=== PATIENT | male | born 1940 | race Caucasian/White ===

== ENCOUNTER 2020-05-20 14:58 | Outpatient (CLI) | payer MEDICARE, SELFPAY ==
--- NOTE | 2020-05-20 15:15 | ECG_ITS ---
Measurements Intervals [place] Rate: 58 P: 2 CA: 214 QRS: 4 QRSD: 104 T: 47 QT: 399 QTc: 394 Interpretive Statements SINUS BRADYCARDIA WITH FIRST DEGREE AV BLOCK EARLY PRECORDIAL R/S TRANSITION ABNORMAL ECG Electronically Signed On 05-20-2020 15:39:26 CDT by Michael Barajas D.O.
== END 2020-05-20 14:59 | disposition home or self-care (01) ==
LOC: CHSCARD 15:00
PROVIDERS: PCP Family Medicine; Visit Provider Internal Medicine Cardiovascular Disease
DX: I25.10 Atherosclerotic heart disease of native coronary artery without angina pectoris (principal)
CPT/HCPCS: 93005

== ENCOUNTER 2020-05-27 08:31 | Outpatient (CLI) | payer MEDICARE, SELFPAY ==
[2020-05-27 12:47] LABS: Anion Gap 14.2 mmol/L (7-16); Blood Urea Nitrogen 19 mg/dL (7-18); Calcium 9.2 mg/dL (8.5-10.1); Carbon Dioxide 26 mmol/L (21-32); Chloride 103 mmol/L (98-108); Estimated Glomerular Filt Rate 58; Glucose 101 mg/dL (70-99); Osmolality Calculated 290 mOsm/kg (285-295); Potassium 4.2 mmol/L (3.5-5.1); Sodium 139 mmol/L (136-145)
== END 2020-05-27 08:32 | disposition home or self-care (01) ==
PROVIDERS: PCP Family Medicine
DX: I51.9 Heart disease, unspecified (principal); I10 Essential (primary) hypertension; Z13.89 Encounter for screening for other disorder
CPT/HCPCS: 36415; 80048

== ENCOUNTER 2020-12-04 09:10 | Outpatient (CLI) | payer MEDICARE, SELFPAY ==
[2020-12-04 10:13] LABS: Alanine Aminotransferase 7 U/L (16-63); Albumin Level 3.5 g/dL (3.4-5.0); Alkaline Phosphatase 123 U/L (46-116); Anion Gap 7 mmol/L (8-16); Aspartate Amino Transferase 18 U/L (15-37); Bilirubin,Total 0.3 mg/dL (0.00-1.00); Blood Urea Nitrogen 20 mg/dL (7-18); Calcium 8.5 mg/dL (8.5-10.1); Carbon Dioxide 29 mmol/L (21-32); Chloride 104 mmol/L (98-108); Cholesterol 126 mg/dL (0-200); Estimated Glomerular Filt Rate > 60; Glucose 90 mg/dL (70-99); HDL Direct 34 mg/dL (40-60); LDL Cholesterol Calculated 67 mg/dL (<130); Osmolality Calculated 292 mOsm/kg (285-295); Potassium 4.2 mmol/L (3.5-5.1); Sodium 140 mmol/L (136-145); Total Protein 6.8 g/dL (6.4-8.2); Triglycerides 124 mg/dL (0-150)
== END 2020-12-04 09:11 | disposition home or self-care (01) ==
LOC: CHSLAB 09:13
PROVIDERS: PCP Family Medicine; Visit Provider Internal Medicine Cardiovascular Disease
DX: E78.5 Hyperlipidemia, unspecified (principal)
CPT/HCPCS: 36415; 80053; 80061

== ENCOUNTER 2021-02-11 17:20 | Outpatient (CLI) | payer MEDICARE, SELFPAY | END 2021-02-11 17:21 | disposition home or self-care (01) | LOC: CHSLAB 17:23 | PROVIDERS: PCP Family Medicine; Visit Provider Specialist | DX: C44.212 Basal cell carcinoma of skin of right ear and external auricular canal (principal) | CPT/HCPCS: 88305 ==

== ENCOUNTER 2021-06-04 10:05 | Outpatient (CLI) | payer MEDICARE, SELFPAY ==
--- NOTE | ~2021-06-04 | US_ITS ---
EXAMINATION: US arterial ankle brachial ind DATE: 06/04/2021 10:36 INDICATION: Bilateral leg weakness. 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 TECHNIQUE: Segmental pressures and plethysmographic and Doppler waveforms of the brachial and lower e xtremity arteries were obtained. COMPARISON: None. FINDINGS: Right and left brachial artery pressures of 129 mm Hg and 142 mm Hg, respectively, are concordant (no rmal difference <= 30 mmHg). The right ankle-brachial index (LIZ) is 1.03 (normal >= 0.9-1.0). The right great toe-brachial index (TBI) is 0.48 (normal >= 0.65). Arterial Doppler waveforms are triphasic at the right posterior tibia l and monophasic at the right dorsalis pedis artery, both with brisk systolic upstrokes. The left LIZ is 1.00. The left TBI is 0.51. Arterial Doppler waveforms are biphasic with brisk systol ic upstrokes at both the left posterior tibial and dorsalis pedis arteries. IMPRESSION: 1. Mild arterial occlusive disease to the bilateral lower limbs with mildly decreased bilateral TBIs. Reviewed, dictated and finalized at location A. IMPRESSION: 1. Mild arterial occlusive disease to the bilateral lower limbs with mildly dec reased bilateral TBIs.
== END 2021-06-04 10:06 | disposition home or self-care (01) ==
PROVIDERS: PCP Family Medicine; Visit Provider Internal Medicine Cardiovascular Disease
DX: I25.10 Atherosclerotic heart disease of native coronary artery without angina pectoris (principal); R09.89 Other specified symptoms and signs involving the circulatory and respiratory systems
CPT/HCPCS: 93922

== ENCOUNTER 2021-07-08 09:28 | Outpatient (CLI) | payer MEDICARE, SELFPAY | END 2021-07-08 09:29 | disposition home or self-care (01) | PROVIDERS: PCP Family Medicine; Visit Provider Specialist | DX: C44.42 Squamous cell carcinoma of skin of scalp and neck (principal) | CPT/HCPCS: 88305 ==

== ENCOUNTER 2021-08-26 08:33 | Outpatient (CLI) | payer MEDICARE, SELFPAY ==
--- NOTE | ~2021-08-26 | CT_ITS ---
EXAMINATION: CT abdomen pelvis wo con DATE: 08/26/2021 08:59 INDICATION: Unilateral extrarenal hernia without obstruction TECHNIQUE: Computed tomography (CT) of the abdomen and pelvis was performed without intravenous contr ast. The dose-length product (DLP) was 845.24 mGy-cm. Automated exposure control and iterative recons truction technique were employed. COMPARISON: 07/18/2018 FINDINGS: Minimal dependent atelectasis is present in the lung bases. The heart size is normal. There is a small sliding hiatal hernia. Punctate calcifications in otherwise normal appearing liver and sp grant likely represent healed granulomatous disease. The gallbladder is surgically absent. The pancrea s and adrenal glands are normal. Cysts of the kidneys measure up to 1.4 cm on the right. There is fel[place] cified atherosclerosis of the aorta and many of the other arteries. No pathologically enlarged abdomi nal or pelvic lymph nodes are identified. There is no free intraperitoneal gas or evidence of bowel o bstruction. Colonic diverticulosis is present without evidence of diverticulitis. There is a left ing uinal hernia containing fat and a short segment of the lateral wall of the descending colon. The appe ndix is normal. There is severe lumbar spondylosis. There is a diverticulum in the left lateral wall of the urinary bladder. IMPRESSION: 1. Left inguinal hernia containing fat and a short segment of the lateral wall of the descending colo n. Reviewed, dictated and finalized at location A. IMPRESSION: 1. Left inguinal hernia containing fat and a short segment of the lateral wall of the descending colon.
[2021-08-26 13:19] LABS: Add Urine Microscopic? YES; Appearance Urine Clear (Clear); Bilirubin Urine Negative (Negative); Blood Urine Negative (Negative); Color Urine Yellow (Yellow); Glucose Urine UA Negative (Negative); Ketones Urine Trace (Negative); Leukocyte Esterase Ur Negative LEU/UL (Negative); Nitrate Urine Negative (Negative); Protein Urine Trace (Negative); Specific Grav Ur >= 1.030 (1.010-1.020); Urobilinogen Urine 0.2 mg/dL (0.2-1.0); pH Urine 5.5 (5.0-8.0)
[2021-08-26 13:24] LABS: Bacteria Urine Trace /hpf; RBC Urine None seen /hpf (0-2); WBC Urine None seen /hpf (0-3)
== END 2021-08-26 08:34 | disposition home or self-care (01) ==
PROVIDERS: PCP Family Medicine; Visit Provider Family Medicine
DX: N45.1 Epididymitis (principal); K40.90 Unilateral inguinal hernia, without obstruction or gangrene, not specified as recurrent
CPT/HCPCS: 74176; 81001

== ENCOUNTER 2021-10-01 09:26 | Outpatient (CLI) | payer MEDICARE, SELFPAY ==
--- NOTE | 2021-10-01 09:30 | ECG_ITS ---
Measurements Intervals [place] Rate: 66 P: 52 MO: 210 QRS: -19 QRSD: 117 T: 8 QT: 380 QTc: 401 Interpretive Statements SINUS RHYTHM WITH FIRST DEGREE AV BLOCK INTRAVENTRICULAR CONDUCTION DELAY DELAYED PRECORDIAL R/S TRANSITION MINIMAL Q WAVES- HIGH LATERAL LEADS BASELINE ARTIFACT- I, II, III, AVR, AVL, AVF, V1 ABNORMAL ECG Electronically Signed On 10-01-2021 12:03:01 PRODUCTION CLERK by Michael Barajas D.O.
== END 2021-10-01 09:27 | disposition home or self-care (01) ==
LOC: ANHSURGERY 09:31
PROVIDERS: PCP Family Medicine; Visit Provider Surgery
DX: Z01.818 Encounter for other preprocedural examination (principal); N45.1 Epididymitis; I44.0 Atrioventricular block, first degree; I10 Essential (primary) hypertension
CPT/HCPCS: 36415; 86850; 86900; 86901; 93005

== ENCOUNTER 2021-10-08 01:04 | Day surgery (SDC) | payer MEDICARE, SELFPAY ==
[2021-09-24 15:01] VITALS: BMI 26.4
--- NOTE | 2021-09-24 15:08 | PC.NURSE ---
Report to the Outpatient Waiting Room, entrance under the green pavilion located off [facility], at time _0830 on date _10/08/21 . OR Time: 1030 . - You and your visitor will be asked a series of questions to screen for COVID 19 for your protection. - A mask is required within the hospital. - Only one visitor is allowed at this time. Patient visitors will be guided where to wait when not with patient. Preoperative COVID Testing Requirements: No COVID Test needed if: (proof is required; if not received patient will have Rapid Test prior to entry) - Patient has received COVID Vaccine at least 14 days prior to procedure date or - Patient has positive COVID test result within last 90 days of surgery date. COVID Test needed if above criteria is not met If not COVID vaccinated a COVID test must be conducted within 72 hours of surgery and patient is asked to isolate self from time of testing until procedure. You will go to the [facility] for your COVID testing. The [facility] site is located at the corner of [address] [facility]. You will only be called if COVID results are positive and your surgeon may reschedule your elective surgery date. Patients may have clear liquids (water, carbonated beverages, clear teas, apple juice) until 3 hours prior to surgery with a maximum of 20 ounces. - No food from midnight until time of surgery - Infants may have breast milk until 4 hours before surgery, formula 6 hours prior to surgery. - Children will be allowed to drink immediately following surgery. If applicable, please bring a bottle or sippy cup to assist with drinking. Juice, water, soda, and popsicles are readily available. For infants on formula, please bring formula the day of surgery. Pacifiers are allowed. Take the following medications with a SIP of water the morning of surgery: __NONE Medications to discontinue per physician ____NONE Date to take last dose Please no make-up, nail lao, hairspray, perfume, deodorant, or body powder the day of surgery. No jewelry (including any body piercings) or valuables the day of surgery, leave them at home. Please take a shower or bath the night before, or the morning of, surgery with an antibacterial soap. Wear comfortable, loose fitting clothing. Children are encouraged to wear pajamas. - Jewelry must be removed prior to entering the operating room. Rings and piercings that are not removed may be cut off. - The hospital will not accept responsibility for valuables. - Please leave all valuables, including medications, at home the day of surgery. HIBICLENS SHOWER MORNING OF SURGERY If you are going home after surgery, a licensed lyft driver must drive you home. - NO public transportation without another adult. - We recommend that an adult stay with you for 24 hours following discharge. - We also recommend that you do not drive, make important decision, drink alcoholic beverages, or take any drugs that were not prescribed by your health care provider for at least 24 hours after your discharge time. For Pediatric surgeries, we recommend two adults accompany the child home (only one inside the building at this time). Follow any additional instructions given to you from your surgeon. Telephone instructions given to _PATIENT and asked if any additional questions and then verbalized understanding. Patient advised to call surgeon office or pre surgery nurse liaison [phone] if any additional questions.
[2021-10-08] VITALS (9 sets, daily range): BP systolic 104–142; BP diastolic 49–74; PULSE 57–74; RESP 8–16; TEMP 36.3–36.6; O2SAT 97–100; BMI 26.9
[2021-10-08] MEDS: LACTATED RINGERS 1,000 ML 30 ML IV CONT ×2 (09:20→12:50)
[2021-10-08] MEDS: KETOROLAC 15 MG/ML VIAL (*BKC) IV PUSH (09:30)
[2021-10-08] MEDS: ACETAMINOPHEN 500 MG TABLET 1000 MG PO (09:30)
--- NOTE | 2021-10-08 10:22 | WPDANESEPPF ---
Anes - Initial Pre Proc Eval Procedure: Operation Date: 10/08/21 10:30 Proposed Procedures p Laparoscopic Left Inguinal Hernia Repair With Mesh, DaVinci Assisted - Bob Sampson DO Date/Time: 10/08/21 10:22 Surgeon: Bob Sampson DO Pre Op Diagnosis: Lt Ing Hernia Patient Data Age: 81 Gender: M Height: 1.85 m Weight: 92.7 kg Last Vital Signs Temp 36.6 C 10/08/21 08:45 Pulse 66 10/08/21 08:45 Resp 16 10/08/21 08:45 BP 141/69 H 10/08/21 08:45 Pulse Ox 99 10/08/21 08:45 Allergies Allergy/AdvReac Type Severity Reaction Status Date / Time No Known Allergies Allergy Verified 10/08/21 08:52 Home Medications Medication Instructions Recorded Confirmed Type aspirin 81 mg tablet,delayed 81 mg PO HS 11/24/19 09/24/21 History release finasteride 5 mg tablet 5 mg PO HS tablet 11/27/19 09/24/21 History sildenafil (pulm.hypertension) 20 See Rx Instructions .ROUTE 09/01/21 09/24/21 Rx mg tablet .COMPLEX #30 tablet amlodipine-benazepril 1 cap PO HS 09/24/21 09/24/21 History lovastatin 20 mg PO HS 09/24/21 09/24/21 History metoprolol succinate 25 mg PO HS 09/24/21 09/24/21 History pantoprazole 40 mg PO DAILY 10/08/21 10/08/21 History quetiapine 25 mg PO BID 10/08/21 10/08/21 History Patient hx anesthesia problems: none Family hx anesthesia problems: none Results Review: All pre-operative results and documents have been reviewed as part of the pre-operative evaluation. [facility] Past Medical History Medical History CAD in [place] artery Depression In Remission Dyslipidemia Edema of both legs Erectile dysfunction Essential hypertension Hyperlipidemia (03/03/18) Surgical History Surgical History H/O foot surgery H/O neck surgery History of angioplasty History of cholecystectomy Social History Social History Smoking packs per day: 1 Smoking cigarettes per day: 20.0 Years smoked: 35 Smoking pack-years: 35.00 Smoking status: Former smoker Tobacco type: cigarettes Smoking end date: 11/08/94 Alcohol intake: current Drinks per week: 1 Alcohol use details: rare Living arrangements: alone Spiritual care concerns: No Anes - Eval Final PreProcedure Day of Procedure 10/08/21 10:22 Patient weight: overweight Heart: regular rate and rhythm Lungs: decreased breath sounds Airway: Mallampati scale class II Neurological: alert and oriented Last oral intake: >/= 8 hours ASA classification: III Emergent: no Anesthetic plan: proceed Anesthesia type and monitoring: general ETT and standard monitoring Results Review: All pre-operative results and documents have been reviewed as part of the pre-operative evaluation. Informed Consent: The patient's anesthetic plan and its attendant risks and benefits were discussed with the patient/family/POA. Questions were solicited and answers provided to the satisfaction of the patient/family/POA.
--- NOTE | 2021-10-08 11:03 | WPDHPUPDATE1 ---
History and Physical Update Update Date/Time: 10/08/21 11:03 History and Physical has been reviewed, including an updated exam of the patient. There are NO changes in the patient's condition. Risks, benefits, and alternatives have been discussed and questions answered. Patient agrees to proceed with procedure.
--- NOTE | 2021-10-08 11:04 | PM.IMHP ---
H&P: HPI History of Present Illness Date/Time: 10/08/21 11:04 Chief Complaint: LIH Narrative: 81-year-old man presents for left inguinal hernia repair. He denies any changes since last seen in the office. Review of Systems Review of Systems: All systems reviewed & are unremarkable except as noted in HPI and below Constitutional: Constitutional: Denies chills, Denies fever(s), Denies headache(s) and Denies weight loss Eyes: Eyes: Denies change in vision ENT: Denies dizziness, Denies headache(s), Denies neck mass and Denies throat swelling Cardiovascular: Cardiovascular: Denies chest pain, Denies lightheadedness and Denies dyspnea Respiratory: Respiratory: Denies cough, Denies dyspnea and Denies wheezing Gastrointestinal: Gastrointestinal: Denies abdominal pain, Denies change in bowel habits, Denies nausea and Denies vomiting Genitourinary: Genitourinary: Denies hematuria and Denies dysuria Musculoskeletal: Musculoskeletal: Reports as per HPI Integumentary/Breasts: Skin/Breast: Reports as per HPI Neurologic: Denies dizziness and Denies headache(s) Allergic/Immunologic: Allergic/Immunologic: Denies throat swelling and Denies wheezing PMFSH Past Medical History Medical History CAD in [place] artery Depression In Remission Dyslipidemia Edema of both legs Erectile dysfunction Essential hypertension Hyperlipidemia (03/03/18) Surgical History Surgical History H/O foot surgery H/O neck surgery History of angioplasty History of cholecystectomy Social History Social History Smoking packs per day: 1 Smoking cigarettes per day: 20.0 Years smoked: 35 Smoking pack-years: 35.00 Smoking status: Former smoker Tobacco type: cigarettes Smoking end date: 11/08/94 Alcohol intake: current Drinks per week: 1 Alcohol use details: rare Living arrangements: alone Spiritual care concerns: No Meds Home Medications and Allergies Home Medications Medication Instructions Recorded Confirmed Type aspirin 81 mg tablet,delayed 81 mg PO HS 11/24/19 09/24/21 History release finasteride 5 mg tablet 5 mg PO HS tablet 11/27/19 09/24/21 History sildenafil (pulm.hypertension) 20 See Rx Instructions .ROUTE 09/01/21 09/24/21 Rx mg tablet .COMPLEX #30 tablet amlodipine-benazepril 1 cap PO HS 09/24/21 09/24/21 History lovastatin 20 mg PO HS 09/24/21 09/24/21 History metoprolol succinate 25 mg PO HS 09/24/21 09/24/21 History pantoprazole 40 mg PO DAILY 10/08/21 10/08/21 History quetiapine 25 mg PO BID 10/08/21 10/08/21 History Allergies Allergy/AdvReac Type Severity Reaction Status Date / Time No Known Allergies Allergy Verified 10/08/21 08:52 Vital Signs Vital Signs - 24 hr 10/08/21 08:45 Temperature 36.6 C Pulse Rate 66 Respiratory Rate 16 Blood Pressure 141/69 H Pulse Oximetry 99 Exam Const: General: no acute distress and alert Orientation/consciousness: patient oriented x3 HENMT: Head: normocephalic and atraumatic Ears: hearing grossly normal bilaterally General nose exam: Normal nares present Mouth: Yes Normal oral and palatal mucosa present Eyes: Periorbital: periorbital findings normal Sclera: sclerae normal EOM: EOMs intact bilaterally Neck: Neck: normal visual inspection, no lymphadenopathy and trachea midline Chest: Chest palpation & inspection: normal inspection of the chest Resp: Effort & Inspection: normal respiratory effort Auscultation: clear to auscultation bilaterally Cardio: Jugular venous distension: no JVD Rate: regular rate Rhythm: regular rhythm Heart sounds: S1 normal heart sound present and S2 normal heart sound present Peripheral pulses: Peripheral pulses 2+ throughout GI: Inspection: normal to inspection GI Palp: Yes Soft to palpation, No Tenderness to palpation pre
[2021-10-08] MEDS: ceFAZolin 2 GM/D5W 50 ML 2 GM/50 ML BAG IVPB (11:18)
[2021-10-08] MEDS: BUPIVACAINE HCL 0.5% PF 30 ML VIAL INFILTRATE (11:33)
--- NOTE | 2021-10-08 12:46 | W.PM.PROC2 ---
Procedure Note - Detailed Date of Procedure 10/08/21 Pre-op Diagnosis Left Inguinal Hernia Post-op Diagnosis same (Indirect left inguinal hernia) Procedure Performed Laparoscopic left inguinal hernia repair with mesh, da Rebekah assisted Surgeon Bob Sampson, Anesthesia general and local (0.5% bupivacaine) Indications This is an 81-year-old man who presented with left groin pain for the past 2 months. He had a CT of his abdomen and pelvis performed which showed evidence a left inguinal hernia containing a portion of colon. A reducible hernia was identified on physical exam. Discussions were made with the patient about treatment options, and decision was made to proceed with robotic assisted laparoscopic left inguinal hernia repair with mesh. Findings Laparoscopic left inguinal hernia repair was performed. The patient was found to have an indirect left inguinal hernia. There was no evidence of right inguinal hernia. There was a segment of his sigmoid colon protruding up into the left internal ring. There were some adhesions of the epiploic appendages up to the hernia sac which were taken down with robotic scissors to allow for the hernia sac to be completely reduced. A robotic transabdominal preperitoneal approach was utilized. Once a wide enough preperitoneal pocket was created, I then placed a large left Bard 3DMax mid mesh within the preperitoneal pocket overlying the entire left myopectineal orifice. This was secured in place using 3-0 Vicryl simple interrupted sutures. No specimens were obtained for pathology. Description of Procedure Procedure as well as risks, benefits, and alternatives were discussed with the patient. Written consent was obtained and placed in chart prior to procedure. Patient was brought back to surgical suite. He was placed supine on operating table. Time-out was done to confirm patient and procedure. He was then intubated by Anesthesia Department. His abdomen was prepped and draped in sterile fashion using chlorhexidine prep. 0.5% bupivacaine with epinephrine was infiltrated at each location for incision. A 12 millimeter transverse incision was made just superior to the umbilicus using a 15 blade scalpel. Blunt dissection was carried out down to the linea alba. A vertical incision was made at the linea alba using a 15 blade scalpel. The peritoneum was then bluntly entered. A 12 millimeter trocar was inserted and carbon dioxide insufflation was used to create a pneumoperitoneum. A camera was inserted and the abdominal cavity was inspected. The patient was placed in slight Trendelenburg position. An 8 millimeter incision was made on the right lateral abdomen and an 8 millimeter trocar was inserted under direct visualization. Another 8 millimeter incision was made in the left lateral abdomen and an 8 millimeter trocar was inserted under direct visualization. The robotic arms were brought up to the patient's bedside and secured to the ports. The camera and instruments were inserted. I then moved over to the robotic console and took control of the camera and instruments. After careful inspection of the abdominal cavity, I began scoring the peritoneum along the left lower quadrant using scissors with electrocautery. The preperitoneal plane was entered and this was carefully dissected caudally along the inferior epigastric vessels. Careful dissection with scissors with electrocautery and blunt dissection was used to continue this dissection. I dissected far enough laterally to allow for mesh placement, and also dissected medially to identify the pubic arch and Ariel's ligament. The hernia sac was identified and carefully dissected posteriorly. The cord contents were also identified and the peritoneum was carefully dissected far enough posteriorly to allow for mesh placement. Once an adequate pocket was created, I then placed the mesh within the preperitoneal pocket and carefully unfolded it. The mesh was centered
--- NOTE | 2021-10-08 13:22 | SUR.PHASEI ---
1864 simple mask removed.
--- NOTE | 2021-10-08 13:25 | SUR.PHASEI ---
Top dentures inserted into mouth when O2 removed.
== END 2021-10-08 15:10 | disposition home or self-care (01) ==
PROVIDERS: PCP Family Medicine; Visit Provider Surgery
PROC: 8E0Y4CZ Robotic Assisted Procedure of Lower Extremity, Percutaneous Endoscopic Approach (ICD-10-PCS; CPT 49650; principal; 2021-10-08 10:30)
DX: K40.90 Unilateral inguinal hernia, without obstruction or gangrene, not specified as recurrent (principal); I25.10 Atherosclerotic heart disease of native coronary artery without angina pectoris; E78.5 Hyperlipidemia, unspecified; I10 Essential (primary) hypertension; F32.5 Major depressive disorder, single episode, in full remission; Z87.891 Personal history of nicotine dependence; Z79.82 Long term (current) use of aspirin
CPT/HCPCS: 49650; S2900; A9270; J0690; J1100; J1885; J2405; J2704; J2710; J3010; J7120

== ENCOUNTER 2022-02-09 08:21 | Outpatient (CLI) | payer MEDICARE, SELFPAY ==
[2022-02-09 09:28] LABS: Alanine Aminotransferase 17 U/L (16-63); Albumin Level 3.7 g/dL (3.4-5.0); Alkaline Phosphatase 100 U/L (46-116); Anion Gap 8 mmol/L (8-16); Aspartate Amino Transferase 14 U/L (15-37); Bilirubin,Total 0.5 mg/dL (0.00-1.00); Blood Urea Nitrogen 16 mg/dL (7-18); Calcium 9.5 mg/dL (8.5-10.1); Carbon Dioxide 28 mmol/L (21-32); Chloride 104 mmol/L (98-108); Cholesterol 118 mg/dL (0-200); Estimated Glomerular Filt Rate 60; Glucose 98 mg/dL (70-99); HDL Direct 35 mg/dL (40-60); LDL Cholesterol Calculated 59 mg/dL (<130); Osmolality Calculated 291 mOsm/kg (285-295); Potassium 4.7 mmol/L (3.5-5.1); Sodium 140 mmol/L (136-145); Total Protein 6.9 g/dL (6.4-8.2); Triglycerides 119 mg/dL (0-150)
== END 2022-02-09 08:22 | disposition home or self-care (01) ==
LOC: CHSLAB 08:23
PROVIDERS: PCP Family Medicine; Visit Provider Internal Medicine Cardiovascular Disease
DX: E78.5 Hyperlipidemia, unspecified (principal)
CPT/HCPCS: 36415; 80053; 80061

== ENCOUNTER 2022-07-25 17:10 | Emergency (ER) | payer MEDICARE, SELFPAY ==
--- NOTE | ~2022-07-25 | XR_ITS ---
EXAM: XR elbow LT min 3V DATE: 07/25/2022 17:44 HISTORY: FALL 07/21/22. SWELLING/PAIN LEFT ELBOW. . COMPARISON: None available. FINDINGS: Normal mineralization. No fracture or dislocation. No lytic or blastic lesion. Joint space s are maintained. No erosion or periosteal change. 3.5 x 6.0 cm fluid/soft tissue density mass in the subcutaneous soft tissues lateral to the distal humerus. IMPRESSION: No acute osseous finding in the left elbow. Lateral subcutaneous contusion/hematoma. Reviewed, dictated and finalized at location K. IMPRESSION: No acute osseous finding in the left elbow. Lateral subcutaneous co ntusion/hematoma.
--- NOTE | 2022-07-25 17:19 | ED.UPPEXIN ---
HPI - Extremity Injury (Upper) General Chief Complaint: Extremity Injury, Upper Stated Complaint: fell down Wednesday night; L arm Time Seen by Provider: 07/25/22 17:14 Source: patient Mode of arrival: ambulatory History of Present Illness HPI narrative: 82-year-old male with a history of hypertension, dyslipidemia, peripheral vascular disease, coronary artery disease presents to the ER with -- left elbow pain and lower left arm swelling after he fell 4 days ago. No head injury. No loss of consciousness. MD complaint: injury to: left and elbow Onset (ago): day(s) ( Four days ago) Other Extremity Injury: Left: elbow Other injuries: none Handedness: right Place: home Severity: moderate Relieving factors: immobilization Exacerbating factors: movement of extremity Context: fall Associated symptoms: denies other symptoms Related Data Home Medications Medication Instructions Recorded Confirmed aspirin 81 mg tablet,delayed 81 mg PO HS 11/24/19 01/26/22 release (Adult Low Dose Aspirin) finasteride 5 mg tablet 5 mg PO HS 11/27/19 01/26/22 amlodipine 10 mg-benazepril 40 mg 1 cap PO DAILY 07/25/22 07/25/22 capsule lovastatin 20 mg tablet 10 mg PO DAILY 07/25/22 07/25/22 metoprolol succinate 25 mg 25 mg PO DAILY 07/25/22 07/25/22 tablet,extended release 24 hr pantoprazole 40 mg tablet,delayed 40 mg PO DAILY 07/25/22 07/25/22 release sildenafil (pulm.hypertension) 20 20 mg PO DAILY PRN before activity 07/25/22 07/25/22 mg tablet (Revatio) Allergies Allergy/AdvReac Type Severity Reaction Status Date / Time No Known Allergies Allergy Verified 07/25/22 17:22 Review of Systems Review of Systems: All systems reviewed & are unremarkable except as noted in HPI and below Constitutional: Constitutional: Reports as per HPI and Reports no additional constitutional complaints Eyes: Eyes: Reports as per HPI and Reports no additional eye complaints ENT: Reports system reviewed and no additional complaints, except as documented Cardiovascular: Cardiovascular: Reports as per HPI and Reports no additional cardiovascular complaints Respiratory: Respiratory: Reports as per HPI and Reports no additional respiratory complaints Gastrointestinal: Gastrointestinal: Reports as per HPI and Reports no additional gastrointestinal complaints Genitourinary: Genitourinary: Reports no additional male genitourinary complaints and Reports as per HPI Musculoskeletal: Musculoskeletal: Reports no additional musculoskeletal complaints and Reports as per HPI Comments: left elbow pain worse on movement Integumentary/Breasts: Comments: swelling over the left lower arm. Neurologic: Reports system reviewed and no additional complaints, except as documented and Reports as per HPI Psychiatric: Psychiatric: Reports no additional psychiatric complaints and Reports as per HPI Endocrine: Endocrine: Reports no additional endocrine complaints and Reports as per HPI Hematologic/Lymphatic: Hematologic/Lymphatic: Reports no additional hematologic/lymphatic complaints and Reports as per HPI Allergic/Immunologic: Allergic/Immunologic: Reports no additional allergic/immunologic complaints and Reports as per HPI PMFSH Past Medical History Medical History CAD in [place] artery Dyslipidemia Edema of both legs Erectile dysfunction Essential hypertension Hyperlipidemia (03/03/18) Inguinal hernia Left inguinal hernia Surgical History Surgical History H/O foot surgery H/O neck surgery History of angioplasty History of cholecystectomy S/P laparoscopic hernia repair LIH repair w/ mesh DaVinci assisted 10/08/21 Social History Social History Smoking packs per day: 1 Smoking cigarettes per day: 20.0 Years smoked: 35 Smoking pack-years: 35.00 Smoking status: Former smoker To
[2022-07-25 17:22] VITALS: BP 167/78; PULSE 70; RESP 20; TEMP 36.6; O2SAT 96
[2022-07-25 18:13] VITALS: BP 160/71; PULSE 68; RESP 18; TEMP 36.3; O2SAT 98
--- NOTE | 2022-07-25 18:44 | PC.NURSE ---
On 07/25/22, the student, [analia carpenter ], provided care and completed [facility] documentation on this patient. I have reviewed the student's documentation and agree with the findings.
== END 2022-07-25 18:13 | disposition home or self-care (01) ==
PROVIDERS: Emergency Provider Internal Medicine Critical Care Medicine; PCP Family Medicine
DX: S50.02XA Contusion of left elbow, initial encounter (principal); W19.XXXA Unspecified fall, initial encounter; M25.522 Pain in left elbow; I25.10 Atherosclerotic heart disease of native coronary artery without angina pectoris; E78.5 Hyperlipidemia, unspecified; I10 Essential (primary) hypertension; Z87.891 Personal history of nicotine dependence
CPT/HCPCS: 73080; 99283

== ENCOUNTER 2022-11-10 15:56 | Outpatient (CLI) | payer MEDICARE, SELFPAY | END 2022-11-10 15:57 | disposition home or self-care (01) | LOC: CHSLAB 15:58 | PROVIDERS: PCP Family Medicine; Visit Provider Specialist | DX: C44.629 Squamous cell carcinoma of skin of left upper limb, including shoulder (principal) | CPT/HCPCS: 88305 ==

== ENCOUNTER 2023-02-04 09:37 | Outpatient (CLI) | payer MEDICARE, SELFPAY ==
[2023-02-04 10:13] LABS: Alanine Aminotransferase 19 U/L (16-63); Albumin Level 3.7 g/dL (3.4-5.0); Alkaline Phosphatase 102 U/L (46-116); Anion Gap 9 mmol/L (8-16); Aspartate Amino Transferase 16 U/L (15-37); Bilirubin,Total 0.5 mg/dL (0.00-1.00); Blood Urea Nitrogen 20 mg/dL (7-18); Calcium 8.9 mg/dL (8.5-10.1); Carbon Dioxide 28 mmol/L (21-32); Chloride 106 mmol/L (98-108); Cholesterol 103 mg/dL (0-200); Estimated Glomerular Filt Rate 56; Glucose 105 mg/dL (70-99); HDL Direct 34 mg/dL (40-60); LDL Cholesterol Calculated 48 mg/dL (<130); Osmolality Calculated 298 mOsm/kg (285-295); Potassium 4.6 mmol/L (3.5-5.1); Sodium 143 mmol/L (136-145); Total Protein 7.2 g/dL (6.4-8.2); Triglycerides 105 mg/dL (0-150)
== END 2023-02-04 09:38 | disposition home or self-care (01) ==
LOC: CHSLAB 09:38
PROVIDERS: PCP Family Medicine; Visit Provider Internal Medicine Cardiovascular Disease
DX: E78.5 Hyperlipidemia, unspecified (principal)
CPT/HCPCS: 36415; 80053; 80061

== ENCOUNTER 2024-01-08 08:55 | Outpatient (CLI) | payer MEDICARE, BC, SELFPAY ==
--- NOTE | ~2024-01-08 | MR_ITS ---
EXAMINATION: MR brain IAC wo con DATE: 01/08/2024 11:23 INDICATION: Pulsatile tinnitus, unspecified ear. TECHNIQUE: Magnetic resonance imaging (MRI) of the brain, brainstem, and internal auditory canals was performed without intravenous contrast. COMPARISON: Head CT 03/10/2017 FINDINGS: There is no intracranial hemorrhage, acute infarction, or abnormal intracranial mass lesion . The ventricles are normal in size. There are trace bilateral mastoid effusions. The internal audito ry canals and inner ears, and tympanic cavities are normal. The orbits are normal. There is mild muco stalin thickening in the ethmoid sinuses. IMPRESSION: 1. Normal brain. Reviewed, dictated and finalized at location A. R TAXI BOAT MATE IMPRESSION: 1. Normal brain.
== END 2024-01-08 08:56 | disposition home or self-care (01) ==
LOC: CHSIMG 09:00
PROVIDERS: PCP Family Medicine; Visit Provider Family Medicine
DX: H93.A9 Pulsatile tinnitus, unspecified ear (principal)
CPT/HCPCS: 70551

== ENCOUNTER 2024-01-11 16:03 | Outpatient (CLI) | payer MEDICARE, SELFPAY | END 2024-01-11 16:04 | disposition home or self-care (01) | LOC: CHSLAB 16:10 | PROVIDERS: PCP Family Medicine; Visit Provider Specialist | DX: C44.329 Squamous cell carcinoma of skin of other parts of face (principal) | CPT/HCPCS: 88305 ==

== ENCOUNTER 2024-02-08 10:16 | Outpatient (CLI) | payer MEDICARE, SELFPAY ==
[2024-02-08 11:12] LABS: Alanine Aminotransferase 17 U/L (16-63); Albumin Level 3.9 g/dL (3.4-5.0); Alkaline Phosphatase 98 U/L (46-116); Anion Gap 11 mmol/L (4-12); Aspartate Amino Transferase 15 U/L (15-37); Bilirubin,Total 0.5 mg/dL (0.00-1.00); Blood Urea Nitrogen 21 mg/dL (7-18); Calcium 8.9 mg/dL (8.5-10.1); Carbon Dioxide 27 mmol/L (21-32); Chloride 102 mmol/L (98-108); Cholesterol 146 mg/dL (0-200); Estimated Glomerular Filt Rate > 60; Glucose 96 mg/dL (70-99); HDL Direct 41 mg/dL (40-60); LDL Cholesterol Calculated 65 mg/dL (<130); Osmolality Calculated 293 mOsm/kg (285-295); Potassium 4.5 mmol/L (3.5-5.1); Sodium 140 mmol/L (136-145); Total Protein 7.3 g/dL (6.4-8.2); Triglycerides 202 mg/dL (0-150)
== END 2024-02-08 10:17 | disposition home or self-care (01) ==
LOC: CHSLAB 10:18
PROVIDERS: PCP Family Medicine; Visit Provider Internal Medicine Cardiovascular Disease
DX: E78.5 Hyperlipidemia, unspecified (principal)
CPT/HCPCS: 36415; 80053; 80061

== ENCOUNTER 2024-07-11 15:51 | Outpatient (CLI) | payer MEDICARE, SELFPAY | END 2024-07-11 15:52 | disposition home or self-care (01) | LOC: CHSLAB 16:02 | PROVIDERS: PCP Family Medicine; Visit Provider Specialist | DX: C44.622 Squamous cell carcinoma of skin of right upper limb, including shoulder (principal); C44.321 Squamous cell carcinoma of skin of nose | CPT/HCPCS: 88305 ==

== ENCOUNTER 2024-09-23 14:21 | Outpatient (CLI) | payer MEDICARE, SELFPAY ==
[2024-09-23 15:52] LABS: Prostate Specific Antigen 0.9 ng/mL (< OR = 4.0)
== END 2024-09-23 14:22 | disposition home or self-care (01) ==
LOC: CHSLAB 14:28
PROVIDERS: PCP Family Medicine
DX: R97.20 Elevated prostate specific antigen [PSA] (principal)
CPT/HCPCS: 36415; 84153

== ENCOUNTER 2025-04-06 09:26 | Outpatient (CLI) | payer MEDICARE, SELFPAY ==
--- OUTSIDE RECORDS SUMMARY | 2025-04-06 09:35 | XMS_ITS | Clinical Summary ---
Author Organization [facility] Address [address] [place] [address] Care Team Providers Care Golf Manager Name Role Phone Rick Milan DO Primary Care Provider [phone] Source Comments [facility],non-owned Affiliates and Associated Physician Practices is amultiple site organization consisting of ambulatory clinics and hospital sitesin [place], [place], [place] and [place]. This disclosure is being madepursuant to the Care Everywhere program and may not contain all information available regarding this patient. 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 Gender Identity Not on file Sexual Orientation Not on file Plan of Treatment Health Maintenance Due Date Last Done Comments MEDICARE AWV 12 MONTHS 1940 DTAP/TDAP/TD VACCINES (1 - Tdap) 1959 PNEUMOCOCCAL VACCINE 50+ (1 of 1 - PCV) 1990 ZOSTER VACCINE (1 of 2) 1990 Respiratory Syncytial Virus (RSV) Vaccine Pt: or over 60 yrs (1 - 1-dose 75+ series) 2015 COVID-19 VACCINE ( - 2023-2 5 season) 2024 DEPRESSION SCREENING 11/08/2024 INFLUENZA VACCINE (Season Ended) 2025 HEPATITIS B VACCINE Aged Out No longe r eligible based on patient's age to complete this topic HIB VACCINE Aged Out No longer eligi ble based on patient's age to complete this topic HPV VACCINE Aged Out No longer eligi ble based on patient's age to complete this topic MENINGOCOCCAL (Group B) VACC INE SHARED DECISION-MAKING Aged Out No longer eligibl e based on patient's age to complete this topic MENINGOCOCCAL GROUPS A/C/Y/W VACCINE Aged Out No longer eligible b ased on patient's age to complete this topic Insurance MEDICARE [facility] Care Teams Golf Manager Relationship Specialty Start Date End Date Rick Milan DO [address] [place] [address] [phone] (work) PCP - General 11/17/22
--- OUTSIDE RECORDS SUMMARY | 2025-04-06 09:35 | XMS_ITS | CONTINUITY OF CARE DOCUMENT ---
Author Name shasha, shasha Address Unknown Organization [facility] Address [address] [place] [address] Phone [phone] Care Team Providers Care Transitional Care Manager Name Role Phone Keyur Valdez MD Unavailable ALDO NIELSEN MD Unavailable [phone] ALDO NIELSEN MD Unavailable PROBLEMS Condition Status Date Provider Notes CAD - S/P STENT RCA AND CIRC active Keyur vazquez MD HYPERTENSION active Keyur Valdez MD HYPERLIPIDEMIA active Keyur Valdez MD CHRONIC KIDNEY DISEASE STAGE III (MODERATE) active 201 02/08/31 Keyur Valdez MD Obesity active Keyur Valdez MD Chest pain-neg nuc stress 02/20 active Zhang Valdez MD ENCOUNTERS Date Type Provider Location Encounter Diag nosis - In-person encounter Office Visit [facility] - In-person encounter Office Visit [facility] Chest pain-neg nuc stress 02/20 - In-person encounter Office Visit [facility] Chest pain-neg nuc stress 02/20 - In-person encounter Office Visit [facility] Obesity - In-person encounter Office Visit Keyur Valdez MD [facility] CAD - S/P STENT RCA AND CIRCHYPERTENSIONHYPERLIPIDEMIACHRONIC KIDNEY DISEASE STAGE III (MODERATE) VITAL SIGNS Date Observation Value Provider blood pressure, diastolic 78 mm[Hg] Us mac Valdez MD blood pressure, systolic 144 mm[Hg] Scott Valdez MD pulse rate 64 /min Keyur Valdez MD oxygen saturation, oximetry 98 % Keyur Valdez MD respiratory rate E&M 16 /min Keyur vazquez MD Body Mass Index (Ratio) 25.06 kg/m2 Zhang Valdez MD weight E&M 190 [lb_av] Keyur Valdez MD Body Mass Index (Ratio) 27.04 kg/m2 Zhang Valdez MD blood pressure, diastolic 74 mm[Hg] Us mac Valdez MD blood pressure, systolic 128 mm[Hg] Scott Valdez MD pulse rate 62 /min Keyur Valdez MD oxygen saturation, oximetry 99 % Keyur Valdez MD respiratory rate E&M 16 /min Keyur vazquez MD weight E&M 205 [lb_av] Keyur Valdez MD blood pressure, diastolic 76 mm[Hg] Us mac Valdez MD blood pressure, systolic 130 mm[Hg] Scott Valdez MD pulse rate 82 /min Keyur Valdez MD oxygen saturation, oximetry 98 % Keyur Valdez MD respiratory rate E&M 16 /min Keyur vazquez MD weight E&M 202 [lb_av] Keyur Valdez MD blood pressure, diastolic 82 mm[Hg] Us mac Valdez MD blood pressure, systolic 134 mm[Hg] Scott Valdez MD respiratory rate E&M 16 /min Keyur vazquez MD oxygen saturation, oximetry 95 % Keyur Valdez MD pulse rate 73 /min Keyur Valdez MD weight E&M 225 [lb_av] Keyur Valdez MD height E&M 73 [in_i] Keyur Valdez MD ALLERGIES No Known Drug Allergies RESULTS Date Observation Value Provider Reference Range Interpretation Location triglyceride, serum, fasting 140 mg/dL [facility] HDL cholesterol, serum 29 mg/dL [facility] cholesterol/HDL ratio, serum 3.8 [facility] lipoprotein, beta, serum, point, quantitative, calculated 53 mg/dL [facility] cholesterol, serum 110 mg/dL [facility] thyroid stimulating hormone, serum 1.32 u[IU]/mL [facility] alanine aminotransferase (SGPT), serum 22 1/L [facility] aspartate aminotransferase (SGOT), serum 18 1/L aHttie Asif creatinine, serum 1.07 mg/dL [facility] potassium, serum 4.5 mmol/L [facility] sodium, serum 142 mmol/L [facility] platelet count 247 10*3/mm3 [facility] hematocrit, blood 32.7 % [facility] international normalized ratio (INR) 1.93 [facility] alanine aminotransferase (SGPT), serum 19 1/L [facility] aspartate aminotransferase (SGOT), serum 22 1/L [facility] creatinine, serum 1.15 mg/dL [facility] potassium, serum 3.6 mmol/L [facility] sodium, serum 141 mmol/L [facility] HISTORY OF MEDICATION USE Medication Status Instructions Dates Provider Indications Com ments ASPIRIN 81 MG ORAL TABLET active ONE TAB. DAILY Keyur Valdez MD NIACIN ER 1000 MG ORAL TABLET EXTENDED RELEASE active qd Keyur Valdez MD METOPROLOL SUCCINATE ER 50 MG ORAL TABLET EXTENDED RELEASE 24 HOUR active qd Keyur Valdez MD AMLODIPINE BESY-BENAZEPRIL HCL 5-40 MG ORAL CAPSULE active qd Keyur Valdez MD FINASTERIDE 5 MG ORAL TABLET active qd Keyur Valdez MD ALPRAZOLAM 0.5 MG ORAL TABLET active qd Keyur Valdez MD LOVASTATIN 20 MG ORAL TABLET active ONE TAB. DAILY Kolton Gupta RN LISINOPRIL 20 MG ORAL TABLET completed qd - Kayleen Beard RN EFFIENT 10 MG ORAL TABLET completed qd - Keyur Valdez MD SOCIAL HISTORY Date Observation Value Provider smoking/tobacco cess ation, patient education and counseling yes Keyur Valdez MD physical exercise, f requency, days per week yes Keyur Valdez MD cigarette use yes Keyur Guevara smoking status Former smoker Keyur Valdez MD social history reviewed E&M revi ewed - no changes required Keyur Valdez MD physical exercise, f requency, days per week yes Keyur Valdez MD smoking/tobacco cess ation, patient education and counseling yes Keyur Valdez MD cigarette use yes Keyur Guevara smoking status Former smoker Keyur Valdez MD social history reviewed E&M revi ewed - no changes required Keyur Valdez MD cigarette use yes Keyur Guevara physical exercise, f requency, days per week yes Keyur Valdez MD smoking/tobacco cess ation, patient education and counseling yes Keyur Valdez MD smoking status Former smoker Keyur Valdez MD social history reviewed E&M revi ewed - no changes required Keyur Valdez MD smoking/tobacco cess ation, patient education and counseling yes Keyur Valdez MD social history E&M Ethnicity: [place] ucasian J ob Status: Retired Isha garcia is a former smoker. Smoking History: Isha garcia is a former smoker. B enefits of tobacco cessation reviewed. Keyur Valdez MD social history reviewed E&M revi ewed - no changes required Keyur Valdez MD physical exercise, f requency, days per week yes Keyur Valdez MD smoking status Former smoker Keyur Valdez MD social history E&M E thnicity: J ob Status: Retired Keyur Valdez MD physical exercise, f requency, days per week yes Keyur Valdez MD smoking status former smoker Keyur Valdez MD social history reviewed E&M reviewed Keyur Valdez MD MENTAL STATUS Date Observation Value Provider assessment of judgme nt and insight E&M Alert and oriented to time, place and person. Mood and affect are normal. Keyur Valdez MD FAMILY HISTORY Family Member Condition Father Negative FH of Diabe ronen Mellitus INSURANCE PROVIDERS Payer name Policy type / Coverage type [place] [employer] party ID [facility] [id number] [place] Medicare [id number] TREATMENT PLAN Date Name Performer Cardiology printed to susannttony:W ill do CMP Keyur Valdez MD Cardiology printed to staunttony:W ill do lipid panel Keyur Valdez MD Cardiology printed to staunton U jacklyn Valdez MD Cardiology printed t o maria: B P today: 144/78 P rior BP: 128/74 (03/04/2015) Keyur Valdez MD Follow-up:BP 128/74 His updated medication list for this problem includes: Amlodipine Besy-benazepril Hcl 5-40 Mg Caps (Amlodipine besy-benazepril hcl) ..... Qd Metoprolol Succinate Er 50 Mg [id number] (Metoprolol succinate) ..... Qd Keyur Valdez MD Follow-up faxed to mono cmelroy: H is updated medication list for this problem includes: Effient 10 Mg Tabs (Prasugrel hcl) ..... Qd Lovastatin 40 Mg Tabs (Lovastatin) ..... Qd Amlodipine Besy-benazepril Hcl 5-40 Mg Caps (Amlodipine besy-benazepril hcl) ..... Qd Metoprolol Succinate Er 50 Mg [id number] (Metoprolol succinate) ..... Qd Orders: Mono TR - Nuclear ([id number]) Keyur Valdez MD Follow-up faxed to maria Valdez MD Follow-up faxed to mono mcelroy:BP 130/76 His updated medication list for this problem includes: Amlodipine Besy-benazepril Hcl 5-40 Mg Caps (Amlodipine besy-benazepril hcl) ..... Qd Metoprolol Succinate Er 50 Mg [id number] (Metoprolol succinate) ..... Qd Keyur Valdez MD faxed 08/13/14 1303: H is updated medication list for this problem includes: Lovastatin 40 Mg Tabs (Lovastatin) ..... Qd Niacin Er 1000 Mg Cr-tabs (Niacin) ..... Qd Keyur Valdez MD faxed 08/13/14 1303:B P 134/82 His updated medication list for this problem includes: Lisinopril 20 Mg Tabs (Lisinopril) ..... Qd Amlodipine Besy-benazepril Hcl 5-40 Mg Caps (Amlodipine besy-benazepril hcl) ..... Qd Metoprolol Succinate Er 50 Mg [id number] (Metoprolol succinate) ..... Qd Keyur Valdez MD faxed 08/13/14 1303 Keyur Valdez MD Date Name CBC (H/H, RBC, INDIC ES, WBC, PLT) COMPREHENSIVE METABO LIC PANEL W/EGFR LIPID PANEL STR - Nuclear CBC (H/H, RBC, INDIC ES, WBC, PLT) LIPID PANEL COMPREHENSIVE METABO LIC PANEL W/EGFR Complete Echo
[2025-04-06 09:57] LABS: Alanine Aminotransferase 16 U/L (6-50); Albumin Level 4.1 g/dL (3.5-5.1); Alkaline Phosphatase 88 U/L (38-126); Anion Gap 6 mmol/L (4-12); Aspartate Amino Transferase 24 U/L (17-59); Bilirubin,Total 0.5 mg/dL (0.2-1.3); Blood Urea Nitrogen 21 mg/dL (9-20); Calcium 9.1 mg/dL (8.4-10.2); Carbon Dioxide 27 mmol/L (22-30); Chloride 105 mmol/L (98-107); Cholesterol 135 mg/dL (0-200); Estimated Glomerular Filt Rate > 60; Glucose 95 mg/dL (65-110); HDL Direct 29 mg/dL; LDL Cholesterol Calculated 62 mg/dL (<130); Osmolality Calculated 289 mOsm/kg (285-295); Potassium 4.6 mmol/L (3.4-5.0); Sodium 138 mmol/L (137-145); Total Protein 7.1 g/dL (6.3-8.2); Triglycerides 222 mg/dL (<150)
== END 2025-04-06 09:27 | disposition home or self-care (01) ==
LOC: CHSLAB 09:28
PROVIDERS: PCP Family Medicine; Visit Provider Internal Medicine Cardiovascular Disease
DX: E78.5 Hyperlipidemia, unspecified (principal)
CPT/HCPCS: 36415; 80053; 80061

== ENCOUNTER 2025-07-21 11:15 | Emergency (ER) | payer MEDICARE, SELFPAY ==
[2025-07-21] VITALS (20 sets, daily range): BP systolic 103–158; BP diastolic 50–77; PULSE 72–89; RESP 15–27; TEMP 36.4–36.7; O2SAT 94–98
--- NOTE | ~2025-07-21 | CT_ITS ---
EXAMINATION: CT brain wo janice, 07/21/2025 12:10 CDT HISTORY: episode of dizziness/ lightheadedness/ nausea/ vomiting COMPARISON: No comparisons available. Technique: Axial images obtained of the brain without contrast. One or more of the following dose reduction techniques were used: automated exposure control, adjustment of the mA and/or kV according to patient size, use of iterative reconstruction technique. Findings: No acute infarct or parenchymal hemorrhage. No abnormal mass or mass effect. No midline shift. No extra-axial fluid collections. No hydrocephalus. Mastoid air cells unremarkable. Sinuses and orbits unremarkable. No acute fracture. No significant facial or scalp soft tissue swelling evident. No radiopaque foreign body is seen. Impression: 1.No acute intracranial abnormality. Reviewed, dictated and finalized at location A. Impression: 1.No acute intracranial abnormality.
--- NOTE | ~2025-07-21 | XR_ITS ---
EXAMINATION: XR chest 1V portable COMPARISON: No comparisons available. HISTORY: episode of dizziness/ lightheadedness/ nausea/ vomiting FINDINGS: Scattered small infiltrates. No pneumothorax. Heart is normal size. Mediastinal and hilar contours are within normal limits. Bony thorax no acute abnormality. Miscellaneous: None Impression: Early bilateral pneumonia Reviewed, dictated and finalized at location A. Impression: Early bilateral pneumonia
--- NOTE | 2025-07-21 11:22 | ED.DIZZY ---
HPI - Dizziness General Chief Complaint: Unspecified Stated Complaint: lightheadedness Time Seen by Provider: 07/21/25 11:21 Related Data Home Medications ?Medication ?Instructions ?Recorded ?Confirmed ?Last Taken ?Type aspirin 81 mg tablet,delayed 81 mg PO HS 11/24/19 05/16/25 07/24/22 History release (Adult Low Dose Aspirin) omega 6-lie-nix-fish oil 1,000 mg 1 cap PO DAILY 05/16/25 05/16/25 Unknown History (120 mg-180 mg) capsule (Fish Oil) Allergies Allergy/AdvReac Type Severity Reaction Status Date / Time No Known Allergies Allergy Verified 07/21/25 11:22 [facility] Past Medical History Medical History Inguinal hernia Left inguinal hernia Erectile dysfunction CAD in inaja artery Dyslipidemia Edema of both legs Essential hypertension Hyperlipidemia (03/03/18) Surgical History Surgical History S/P laparoscopic hernia repair LIH repair w/ mesh DaVinci assisted 10/08/21 H/O neck surgery H/O foot surgery History of angioplasty History of cholecystectomy Social History Social History Smoking packs per day: 1 Smoking cigarettes per day: 20.0 Years smoked: 35 Smoking pack-years: 35.00 Smoking status: Former smoker Tobacco type: cigarettes Smoking end date: 11/08/94 Alcohol intake: current Drinks per week: 1 Alcohol use details: rare Do You Feel Safe in your Home?: Yes Lack of Transportation: No Lack of Food: Never True Current Housing: I Have Housing Concerned About Future Housing: No Difficulty Paying Gas/Electric Bills: No Difficulty Paying for Meds: No Currently Unemployed: No Education: High School Diploma/GED Difficulty w/ Childcare or Family Care: No Living arrangements: alone Occupation/Education: retired Spiritual care concerns: No Course Vital Signs Vital signs: Vital Signs Temperature 36.4 C L 07/21/25 11:15 Pulse Rate 89 07/21/25 11:15 Respiratory Rate 16 07/21/25 11:15 Blood Pressure 140/77 07/21/25 11:15 Pulse Oximetry 95 07/21/25 11:15 Oxygen Delivery Room Air 09/13/25 11:15 Temperature 36.4 C L 07/21/25 11:15 Pulse Rate 82 07/21/25 15:16 Respiratory Rate 22 H 07/21/25 15:16 Blood Pressure 126/62 07/21/25 15:16 Pulse Oximetry 95 07/21/25 15:01 Oxygen Delivery Room Air 07/21/25 11:15 MDM - Dizziness Lab Data 07/21/25 11:59 07/21/25 11:59 Labs: Lab Results 07/21/25 07/21/25 Range/Units 11:59 14:40 WBC 8.7 (4.8-10.8) K/mm3 RBC 4.26 L (4.70-6.10) M/mm3 Hgb 13.9 (12.4-15.3) g/dL Hct 40.8 (37.0-46.0) % MCV 95.8 (78.0-102.0) fL MCH 32.6 H (27.0-31.0) pg MCHC 34.1 (32-36) g/dL RDW 13.2 (11.6-14.4) % Plt Count 217 (150-420) K/mm3 MPV 8.5 L (8.7-11.0) fl Immature Gran % (Auto) 0.3 H (0.0-0.0) % Neut % (Auto) 86.3 H (50.0-70.0) % Lymph % (Auto) 6.8 L (18.0-42.0) % [place] % (Auto) 6.0 (2.0-11.0) % Eos % (Auto) 0.5 L (1.0-6.0) % Baso % (Auto) 0.1 (0.0-1.0) % Lymph # (Auto) 0.59 L (1.10-4.50) K/mm3 [place] # (Auto) 0.52 (0.10-0.90) K/mm3 Eos # (Auto) 0.04 (0.02-0.50) K/mm3 Baso # (Auto) 0.01 (0.00-0.10) K/mm3 Abs Immat Gran (auto) 0.03 H (0.00-0.00) K/mm3 Absolute Neuts (auto) 7.53 H (1.70-7.20) K/mm3 Absolute Nucleated RBC 0.00 (0.00-0.00) K/mm3 Nucleated RBC % 0.0 (0-0.0) % Sodium 139 (137-145) mmol/L Potassium 4.8 (3.4-5.0) mmol/L Chloride 104 (98-107) mmol/L Carbon Dioxide 22 (22-30) mmol/L Anion Gap 13 H (4-12) mmol/L BUN 30 H (9-20) mg/dL Creatinine 1.41 H (0.7-1.3) mg/dL Estim Creat Clear Calc 37 ml/min Estimated GFR 48 L (59 - ) Glucose 130 H (65-110) mg/dL Calculated Osmolality 296 H (285-295) mOsm/kg Lactic Acid 1.7 (0.4-2.0) mmol/L Calcium 9.5 (8.4-10.2) mg/dL Total Bilirubin 0.5 (0.2-1.3) mg/dL AST 28 (17-59) U/L ALT 20 (6-50) U/L Alkaline Phosphatase 92 (38-126) U/L Troponin I < 0.012 (0.000-0.034) ng/mL Total Protein 7.2 (6.3-8.2) g/dL Albumin 4.3 (3.5-5.1) g/dL Urine Color Light yellow (Yellow) Urine Appearance Clear (Clear) Urine pH 6.0 (5.0-8.0) Ur Specific [place] 1.015 (1.010-1.020) Urine Protein Trace H (Negative) Urine Glucose (UA) Negative (Negative) Urine Ketones Negative (Negative) Ur Blood (Man) Negative (Negative) Urine Nitrate Negative (Negative) Urine Bilirubin Negative (Negative) Urine Urobilinogen 0.2 (0.2-1.0) mg/dL Leukocyte Esterase Rfl Negative (Negative) ALESSANDRO/UL Influenza A (RT-PCR) Negative (Negative) Influenza B (RT-PCR) Negative (Negative) RSV (RT-PCR) Negative (Negative) SARS-CoV-2 RNA (RT-PCR) Negative (Negative) Discharge Plan Discharge Clinical Impression: JACK (acute kidney injury), Dehydration Pneumonia Qualifiers: Pneumonia type: due to unspecified organism Laterality: unspecified laterality Lung location: unspecified part of lung Qualified Code(s): J18.9 - Pneumonia, unspecified organism Patient Disposition: Home Condition: Stable Instructions: Antibiotic Form, Acute Kidney Injury (DC), Bacterial Pneumonia (DC) Additional Instructions: Please take all antibiotics given to completion. Please drink plenty of clear liquids such as water. Please have your blood work rechecked at follow-up with your doctor in the next 1-2 weeks to include a kidney function. Come back to the ER for any worse feeling or illness. Patient Language: Sri Lankan Prescriptions: New levofloxacin 750 mg tablet 750 mg PO DAILY Qty: 5 0RF No Action aspirin [Adult Low Dose Aspirin] 81 mg tablet,delayed release (DR/EC) 81 mg PO HS omega 8-qnk-bdz-fish oil [Fish Oil] 1,000 (120-180) mg capsule 1 cap PO DAILY finasteride 5 mg tablet 5 mg PO DAILY Qty: 90 2RF Patient Comments: mon-wed-wed lovastatin 10 mg tablet See Rx Instructions .ROUTE .COMPLEX Qty: 90 2RF Dose Instruction: TAKE ONE TABLET BY MOUTH DAILY Rx Instructions: TAKE ONE TABLET BY MOUTH DAILY amlodipine-benazepril 10-40 mg capsule See Rx Instructions .ROUTE .COMPLEX Qty: 90 2RF Dose Instruction: TAKE ONE CAPSULE BY MOUTH DAILY Rx Instructions: TAKE ONE CAPSULE BY MOUTH DAILY metoprolol succinate 25 mg tablet extended release 24 hr See Rx Instructions .ROUTE .COMPLEX Qty: 90 2RF Dose Instruction: TAKE ONE TABLET BY MOUTH DAILY Rx Instructions: TAKE ONE TABLET BY MOUTH DAILY escitalopram oxalate 10 mg tablet See Rx Instructions .ROUTE .COMPLEX Qty: 90 0RF Dose Instruction: TAKE ONE TABLET BY MOUTH DAILY Rx Instructions: TAKE ONE TABLET BY MOUTH DAILY Follow-up/Referrals: Rick Milan DO [Primary Care Provider, [facility]] Time of Disposition: 15:52
--- OUTSIDE RECORDS SUMMARY | 2025-07-21 11:22 | XMS_ITS | Clinical Summary ---
Author Organization [facility] Address [address] [place] [address] Care Team Providers Care Printer Slotter Feeder Name Role Phone Rick Milan DO Primary Care Provider [phone] Source Comments [facility],non-owned Affiliates and Associated Physician Practices is amultiple site organization consisting of ambulatory clinics and hospital sitesin [place], [place], [place] and [place]. This disclosure is being madepursuant to the Care Everywhere program and may not contain all information available regarding this patient. 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 Gender Identity Not on file Sexual Orientation Not on file Plan of Treatment Health Maintenance Due Date Last Done Comments MEDICARE AWV 12 MONTHS 1940 DTAP/TDAP/TD VACCINES (1 - Tdap) 1959 PNEUMOCOCCAL VACCINE 50+ (1 of 1 - PCV) 1990 ZOSTER VACCINE (1 of 2) 1990 Respiratory Syncytial Virus (RSV) Vaccine Pt: or over 60 yrs (1 - 1-dose 75+ series) 2015 DEPRESSION SCREENING 11/08/2024 COVID-19 VACCINE ( - 2023-2 5 season) 2025 INFLUENZA VACCINE (#1) 2025 HEPATITIS B VACCINE Aged Out No [...] age to complete this topic Insurance [facility]ICARE [facility] Care Teams Printer Slotter Feeder Relationship Specialty Start Date End Date Rick Milan DO [address] [place] [address] [phone] (work) PCP - General 11/17/22
--- OUTSIDE RECORDS SUMMARY | 2025-07-21 11:22 | XMS_ITS | Clinical Summary ---
Author Organization [facility] Address [address] [place] [address] Care Team Providers Care Restaurant Host Name Role Phone Rick Milan DO Primary Care Provider [phone] Social History Tobacco Use Types Packs/Day Years Used Date Smoking Tobacco: Never Assessed Sex and Gender Information Value Date Recorded Sex Assigned at Not on file Legal Sex Male 10:51 PM CDT Gender Identity Not on file Sexual Orientation Not on file Plan of Treatment Health Maintenance Due Date Last Done Comments DTaP, Tdap and Td Vaccines ( 1 - Tdap) 1959 Pneumococcal Vaccine: 50+ Years (1 of 1 - PCV) 1990 Zoster Vaccines (1 of 2) 1990 Annual Medicare Wellness Visit 2005 RSV Immunization or 60+ Years (1 - 1-dose 75+ series) 2015 COVID-19 Vaccine (3 2024-2 6 season) 2025 02/04/2021, 01/14/2021 Meningococcal B Vaccine Aged Out No l onger eligible based on patient's age to complete this topic Meningococcal Vaccine Aged Out No dipika ale eligible based on patient's age to complete this topic RSV Immunizations Under 20 Months Aged Out No longer eligible b ased on patient's age to complete this topic Insurance MEDICARE [facility] Care Teams Restaurant Host Relationship Specialty Start Date End Date Rick Milan DO [address] [place] [address] PCP - General FAMILY PRACTICE 09/21/23
--- NOTE | 2025-07-21 11:23 | ECG_ITS ---
Test Date: 2025-07-21 11:39:15 Measurements Intervals [place] Rate: 84 P: 183 IA: 195 QRS: 218 QRSD: 104 T: 153 QT: 360 QTc: 427 Interpretive Statements NORMAL SINUS RHYTHM PATTERN CONSISTENT WITH PULMONARY DISEASE RIGHT VENTRICULAR HYPERTROPHY [SOME/ALL OF: PROMINENT R IN V1, LATE TRANSITION, RAD, YOEL, SSS] LIMB LEAD REVERSAL ABNORMAL ECG No previous ECG available for comparison Electronically Signed On 07-21-2025 12:12:45 CDT by Eyad Perales M.D.
[2025-07-21 12:04] LABS: Hematocrit 40.8 % (37.0-46.0); Hemoglobin 13.9 g/dL (12.4-15.3); Immature Granulocyte Percent A 0.3 % (0.0-0.0); Lymphocytes Absolute Auto 0.59 K/mm3 (1.10-4.50); Mean Corpuscular HGB Conc 34.1 g/dL (32-36); Mean Corpuscular Hemoglobin 32.6 pg (27.0-31.0); Mean Corpuscular Volume 95.8 fL (78.0-102.0); Nucleated Red Blood Cells Absolute Auto 0.00 K/mm3 (0.00-0.00); Nucleated Red Blood Cells Perc 0.0 % (0-0.0); Platelet Count Result 217 K/mm3 (150-420); Red Blood Count 4.26 M/mm3 (4.70-6.10); White Blood Count 8.7 K/mm3 (4.8-10.8)
[2025-07-21 12:15] LABS: Alanine Aminotransferase 20 U/L (6-50); Albumin Level 4.3 g/dL (3.5-5.1); Alkaline Phosphatase 92 U/L (38-126); Anion Gap 13 mmol/L (4-12); Aspartate Amino Transferase 28 U/L (17-59); Bilirubin,Total 0.5 mg/dL (0.2-1.3); Blood Urea Nitrogen 30 mg/dL (9-20); Calcium 9.5 mg/dL (8.4-10.2); Carbon Dioxide 22 mmol/L (22-30); Chloride 104 mmol/L (98-107); Estimated CRCL calculation 37 ml/min; Estimated Glomerular Filt Rate 48; Glucose 130 mg/dL (65-110); Osmolality Calculated 296 mOsm/kg (285-295); Potassium 4.8 mmol/L (3.4-5.0); Sodium 139 mmol/L (137-145); Total Protein 7.2 g/dL (6.3-8.2)
[2025-07-21 12:26] LABS: Troponin I < 0.012 ng/mL (0.000-0.034)
[2025-07-21] MEDS: SODIUM CHLORIDE 0.9% IV 1,000 ML 999 ML IV CONT (12:54)
[2025-07-21] MEDS: levoFLOXacin 750 MG/D5W 150 ML 750 MG/150 ML BAG 100 MG IVPB (13:43)
[2025-07-21 14:46] LABS: Appearance Urine Clear (Clear); Glucose Urine UA Negative (Negative); Leukocyte Esterase Ur Negative LEU/UL (Negative); Nitrate Urine Negative (Negative); Specific Grav Ur 1.015 (1.010-1.020)
[2025-07-21 14:47] LABS: Add Urine Microscopic? NO
[2025-07-21 15:19] LABS: Influenza A QL RT-PCR Negative (Negative); Influenza B QL RT-PCR Negative (Negative); RSV RNA, RT-PCR Negative (Negative); SARS-CoV-2 RNA PCR Negative (Negative)
--- NOTE | 2025-07-24 12:46 | PC.NURSE ---
BLOOD CULTURE PRELIMINARY RESULT: NO GROWTH DETECTED. WAITING ON FINAL RESULTS.
--- NOTE | 2025-07-25 12:24 | PC.NURSE ---
PRELIMINARY BLOOD CULTURE NO GROWTH IN 24 HOURS
--- NOTE | 2025-07-26 16:38 | PC.NURSE ---
preliminary blood culture results x 2 : no growth in 48 hours
--- NOTE | 2025-07-29 17:45 | PC.NURSE ---
BLOOD CULTURE NO GROWTH FINAL
== END 2025-07-21 15:58 | disposition home or self-care (01) ==
PROVIDERS: Emergency Provider Emergency Medicine; PCP Family Medicine
DX: N17.9 Acute kidney failure, unspecified (principal); E86.0 Dehydration; J18.9 Pneumonia, unspecified organism; I25.10 Atherosclerotic heart disease of native coronary artery without angina pectoris; E78.5 Hyperlipidemia, unspecified; I10 Essential (primary) hypertension; Z87.891 Personal history of nicotine dependence; Z20.822 Contact with and (suspected) exposure to COVID-19
CPT/HCPCS: 36415; 70450; 71045; 80053; 81003; 83605; 84484; 85025; 87040; 87637; 93005; 96361; 96365; 99284; J1956; J7030

== ENCOUNTER 2025-09-13 16:07 | Emergency (ER) | payer MEDICARE, SELFPAY ==
--- OUTSIDE RECORDS SUMMARY | 2025-09-11 09:42 | XMS_ITS | Encounter Summary ---
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 Procedures CT Chest with Contrast CT Chest with Contrast Jeffrey Duarte MD [address] [place] [address] Phone: tel: fax: [address] [phone] Referral ID Status Reason Start Date Expiration Date Visits Re quested Visits Authorized [id number] Closed 09/04/2025 10/04/2026 1 1 ARY HISTORIAN * MRI/CAT/PET Scan (Routine) - Closed Specialty Diagnoses / Procedures Referred By Contac t Referred To Contact Radiology Diagnoses 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 Procedures CT Neck Soft Tissue W Contrast CT Neck Soft Tissue W Contrast Jeffrey Duarte MD [address] [place] [id number] Phone: tel: fax: [address] [phone] Referral ID Status Reason Start Date Expiration Date Visits Re quested Visits Authorized [id number] Closed 09/04/2025 10/04/2026 1 1 ARY HISTORIAN Reason for Visit * MRI/CAT/PET Scan (Routine) - Closed Specialty Diagnoses / Procedures Referred By Contac t Referred To Contact Radiology Diagnoses 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 Procedures CT Chest with Contrast CT Chest with Contrast Jeffrey Duarte MD [address] [place] [address] Phone: tel: fax: [address] [phone] Referral ID Status Reason Start Date Expiration Date Visits Re quested Visits Authorized [id number] Closed 09/04/2025 10/04/2026 1 1 Encounter Details Date Type Department Care Team (Latest Contact Info) Description 09/11/2025 9:42 AM LIBRARY HISTORIAN - 09/11/2025 11:59 PM LIBRARY HISTORIAN Hospital Encounter [facility] [address] [place] [address] 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 2-3 times a week 09/05/2025 Q2: How many drinks containi ng alcohol do you have on a typical day when you are drinking? 1 or 2 09/05/2025 Q3: How often do you have si x or more drinks on one occasion? Less than monthly 09/05/2025 Personal Safety Answer Date Recorded Have you ever been in or are you currently in a harmful physical or emotional relationship or is someone making you feel afraid or unsafe? Denies 09/12/2025 Sex and Gender Information Value Date Recorded Sex Assigned at Not on file Legal Sex Male 9:04 AM LIBRARY HISTORIAN Gender Identity Not on file Sexual Orientation Not on file documented as of this encounter Medications at Time of Discharge acetaminophen (TYLENOL) 500 mg tabletIndications: Pain Take 2 tablets (1,000 mg total) by mouth every 6 (six) hours as needed for pain amLODIPine-benazep riL (LOTREL) 10-40 mg per capsuleIndications :hypertension 1 capsule by other route nightly 11/29/2024 aspirin 81 mg enteric coated tabletIndications: Myocardial Reinfarction Prevention,Pt has heart stents Take 1 tablet (81 mg total) by mouth nightly 11/24/2019 cefadroxil (DURICEF) 500 mg capsule Take 1 capsule (500 mg total) by mouth 2 (two) times a day for 3 days 6 capsule 09/12/2025 escitalopram (LEXAPRO) 10 mg tabletIndications: Anxiety with Depression 1 tablet (10 mg total) by other route nightly 07/20/2025 finasteride (PROSCAR) 5 mg tabletIndications: benign prostatic hyperplasia with lower urinary tract sx Take 1 tablet (5 mg total) by mouth nightly 02/02/2023 lovastatin (MEVACOR) 10 mg tabletIndications: hyperlipidemia 1 tablet (10 mg total) by other route nightly 11/15/2024 metoprolol XL (TOPROL-XL) 25 mg extended release tabletIndications: coronary artery disease,hypertensi on Take 1 tablet (25 mg total) by mouth nightly 04/30/2025 naproxen sodium 220 mg capsuleIndications :Pain Take 1 tablet by mouth 2 (two) times a day as needed (pain) omega 9-uzx-imy-fish oil 1,000 (120-180) mg capsuleIndications :hypertriglyceride kary Take 1 capsule (1,000 mg total) by mouth nightly 05/16/2025 omeprazole (PriLOSEC) 20 mg capsuleIndications :GERD Take 1 capsule (20 mg total) by mouth nightly as needed (GERD) oxyCODONE (ROXICODONE) 5 mg immediate release tabletIndications: Pain Take 1 tablet (5 mg total) by mouth every 4 (four) hours as needed for pain 5 tablet 09/12/2025 documented as of this encounter Discharge Disposition Disposition Code Departure Means Destination Discharge to home or self care documented in this encounter Plan of Treatment Not on file documented as of this encounter Goals Goal Patient Goal Type Associated Problems Recent Progress Patient-Stated? 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 Scattered pulmonary nodules measuring up to 0.8 cm, which are indeterminate in etiology. Given patient's history of malignancy, short-term follow-up chest CT in 3 months is recommended to assess for stability as clinically indicated. 2. Mild emphysematous changes of the lungs with scattered subsegmental atelectasis and scarring. No definite evidence of a focal consolidation. Electronically signed by: Cha Garza D.O. Narrative 09/11/2025 10:24 AM LIBRARY HISTORIAN EXAMINATION: CT CHEST W CONTRAST ORDERING HEALTHCARE PROVIDER: JEFFREY DUARTE HISTORY: scca of ear. Skin cancer of the right ear that was diagnosed one month ago Hx of 4 neck surgeries as a child for anterior cysts TECHNIQUE: CT of the chest was performed with IV contrast administration. Coronal and sagittal images were obtained. Automated exposure control was used as dose optimization technique for this examination. COMPARISON: None. FINDINGS: LUNGS: There is minimal biapical pleural thickening and scarring. There is no definite evidence of a pneumothorax. The central airways are grossly patent. There are mild emphysematous changes of lungs with scattered cysts atelectasis and scarring. There is no definite evidence of a focal consolidation or pleural effusion. There is a calcified granuloma in the left upper lobe.. There are multiple scattered pulmonary nodules noted. For example, there is a subtle 0.4 cm groundglass pulmonary nodule in the posterior right upper lobe (axial image 40). There is a 0.6 cm nodule in the anterior right upper lobe (image 48). There are couple of pneumonia pulmonary nodules in the right middle lobe abutting the right minor fissure measuring 0.8 x 0.5 cm and 0.7 x 0.3 cm (axial image 53). There is a 0.5 cm right lower lobe pulmonary nodule (axial image 50). There is a 0.5 cm right lower lobe pulmonary nodule (axial image 78). There is a subpleural 0.8 cm pulmonary nodule in the posterior medial left lower lobe (axial image 39). There is a subpleural 0.4 cm pulmonary nodule in the lateral left lower lobe (axial image 79). MEDIASTINUM/REINA: There is cardiomegaly. There is no definite evidence of a pericardial effusion. There are atherosclerotic changes of the thoracic aorta and coronary vessels. There is no definite evidence of mediastinal, hilar, or axillary lymphadenopathy. There are scattered subcentimeter mediastinal lymph nodes noted with the largest measuring 0.7 cm in the precarinal region (axial image 174). There are scattered prominent subcentimeter hilar lymph nodes noted bilaterally with the largest measuring 0.8 cm on the right (axial image 169) and 0.8 cm on the left (axial image 184). CHEST WALL: No masses. No subcutaneous air.. HARDWARE/LINES/TUBES: None. UPPER ABDOMEN: There is a small to moderate-sized hiatal hernia. The bilateral jugular glands are grossly symmetrical and unremarkable. There are calcified granulomas noted in the liver and spleen. The gallbladder surgically absent. There are scattered colonic diverticula noted. MUSCULOSKELETAL: There is mild osteopenia. There is a mild levoscoliotic curvature the spine with degenerative changes. OTHER: No other significant abnormality. Procedure Note Cha Garza, - 09/11/2025 EXAMINATION: CT CHEST W CONTRAST ORDERING HEALTHCARE PROVIDER: JEFFREY DUARTE HISTORY: scca of ear. Skin cancer of the right ear that was diagnosed one month ago Hx of 4 neck surgeries as a child for anterior cysts TECHNIQUE: CT of the chest was performed with IV contrast administration. Coronal and sagittal images were obtained. Automated exposure control was used as dose optimization technique for this examination. COMPARISON: None. FINDINGS: LUNGS: There is minimal biapical pleural thickening and scarring. There is no definite evidence of a pneumothorax. The central airways are grossly patent. There are mild emphysematous changes of lungs with scattered cysts atelectasis and scarring. There is no definite evidence of a focal consolidation or pleural effusion. There is a calcified granuloma in the left upper lobe.. There are multiple scattered pulmonary nodules noted. For example, there is a subtle 0.4 cm groundglass pulmonary nodule in the posterior right upper lobe (axial image 40). There is a 0.6 cm nodule in the anterior right upper lobe (image 48). There are couple of pneumonia pulmonary nodules in the right middle lobe abutting the right minor fissure measuring 0.8 x 0.5 cm and 0.7 x 0.3 cm (axial image 53). There is a 0.5 cm right lower lobe pulmonary nodule (axial image 50). There is a 0.5 cm right lower lobe pulmonary nodule (axial image 78). There is a subpleural 0.8 cm pulmonary nodule in the posterior medial left lower lobe (axial image 39). There is a subpleural 0.4 cm pulmonary nodule in the lateral left lower lobe (axial image 79). MEDIASTINUM/REINA: There is cardiomegaly. There is no definite evidence of a pericardial effusion. There are atherosclerotic changes of the thoracic aorta and coronary vessels. There is no definite evidence of mediastinal, hilar, or axillary lymphadenopathy. There are scattered subcentimeter mediastinal lymph nodes noted with the largest measuring 0.7 cm in the precarinal region (axial image 174). There are scattered prominent subcentimeter hilar lymph nodes noted bilaterally with the largest measuring 0.8 cm on the right (axial image 169) and 0.8 cm on the left (axial image 184). CHEST WALL: No masses. No subcutaneous air.. HARDWARE/LINES/TUBES: None. UPPER ABDOMEN: There is a small to moderate-sized hiatal hernia. The bilateral jugular glands are grossly symmetrical and unremarkable. There are calcified granulomas noted in the liver and spleen. The gallbladder surgically absent. There are scattered colonic diverticula noted. MUSCULOSKELETAL: There is mild osteopenia. There is a mild levoscoliotic curvature the spine with degenerative changes. OTHER: No other significant abnormality. IMPRESSION: 1. Scattered pulmonary nodules measuring up to 0.8 cm, which are indeterminate in etiology. Given patient's history of malignancy, short-term follow-up chest CT in 3 months is recommended to assess for stability as clinically indicated. 2. Mild emphysematous changes of the lungs with scattered subsegmental atelectasis and scarring. No definite evidence of a focal consolidation. Electronically signed by: Cha Garza D.O. Jeffrey Duarte MD IM CT PROCEDURES Final Res ult * CT Neck Soft Tissue W Contrast (09/11/2025 10:10 AM LIBRARY HISTORIAN) Anatomical Region Laterality Modality Head and Neck N/A Computed Tomogra phy 09/11/2025 10:3 0 AM LIBRARY HISTORIAN Impressions 09/11/2025 10:30 AM LIBRARY HISTORIAN 1. Right external ear thickening is nonspecific by CT and could reflect patient's provided history of malignancy. 2. There is no pathologic lymphadenopathy in the neck. 3. Other findings as above. Electronically signed by: Leander Page D.O. Narrative 09/11/2025 10:30 AM LIBRARY HISTORIAN EXAM DESCRIPTION:CT SOFT TISSUE NECK W CONTRAST REASON FOR STUDY:Skin cancer of the right ear that was diagnosed one month ago. Hx of 4 neck surgeries as a child for anterior cysts. scca of ear TECHNIQUE: Axial CT images through the neck were obtained per protocol after administration of intravenous contrast. Sagittal and coronal reconstructed images were obtained on a dedicated workstation. Automated exposure control was used as a dose optimization technique for this examination. 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 Please correlate with previous imaging studies. The bilateral globes are symmetric. Mucosal thickening in the bilateral ethmoid air cells. Chronic nasal bone deformity. The nasal septum is bowed towards the left. The bilateral mastoid air cells are predominantly clear. The temporomandibular joints are symmetrically placed. The zygomatic arches are intact. Thickening about the right external ear is nonspecific by CT and could reflect patient's provided history of malignancy. The bilateral parotid and submandibular glands enhance symmetrically. With exception of a few remaining central mandibular teeth the patient is edentulous. Left palatine tonsilliths. The evaluation supraglottic larynx and glottic region is degraded by patient motion and focal cords being partially adducted. No parapharyngeal or retropharyngeal fluid collection. The bilateral internal jugular veins are contrast filled. Atherosclerotic changes in the carotid vasculature. A few scattered subcentimeter lymph nodes in the neck on both sides are nonspecific by CT size criteria. No pathologically enlarged cervical lymphadenopathy. The upper chest findings are better assessed on the concurrently obtained chest CT. The osseous structures are diffusely demineralized. Osseous fusion across the C5-C6 and C6-C7 disc spaces. Unfused level disc degeneration ranging up to severe with thickened ligamentum flavum and facet arthropathy. Moderate to severe osseous spinal canal stenosis at C2-C3 and C3-C4 to the right of midline. Varying degrees of osseous neural foraminal stenosis ranging up to severe. The need for dedicated MRI of the cervical spine as clinically indicated. Procedure Note Leander Page, DO - 09/11/2025 EXAM DESCRIPTION:CT SOFT TISSUE NECK W CONTRAST REASON FOR STUDY:Skin cancer of the right ear that was diagnosed one month ago. Hx of 4 neck surgeries as a child for anterior cysts. scca of ear TECHNIQUE: Axial CT images through the neck were obtained per protocol after administration of intravenous contrast. Sagittal and coronal reconstructed images were obtained on a dedicated workstation. Automated exposure control was used as a dose optimization technique for this examination. 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 Please correlate with previous imaging studies. The bilateral globes are symmetric. Mucosal thickening in the bilateral ethmoid air cells. Chronic nasal bone deformity. The nasal septum is bowed towards the left. The bilateral mastoid air cells are predominantly clear. The temporomandibular joints are symmetrically placed. The zygomatic arches are intact. Thickening about the right external ear is nonspecific by CT and could reflect patient's provided history of malignancy. The bilateral parotid and submandibular glands enhance symmetrically. With exception of a few remaining central mandibular teeth the patient is edentulous. Left palatine tonsilliths. The evaluation supraglottic larynx and glottic region is degraded by patient motion and focal cords being partially adducted. No parapharyngeal or retropharyngeal fluid collection. The bilateral internal jugular veins are contrast filled. Atherosclerotic changes in the carotid vasculature. A few scattered subcentimeter lymph nodes in the neck on both sides are nonspecific by CT size criteria. No pathologically enlarged cervical lymphadenopathy. The upper chest findings are better assessed on the concurrently obtained chest CT. The osseous structures are diffusely demineralized. Osseous fusion across the C5-C6 and C6-C7 disc spaces. Unfused level disc degeneration ranging up to severe with thickened ligamentum flavum and facet arthropathy. Moderate to severe osseous spinal canal stenosis at C2-C3 and C3-C4 to the right of midline. Varying degrees of osseous neural foraminal stenosis ranging up to severe. The need for dedicated MRI of the cervical spine as clinically indicated. IMPRESSION: 1. Right external ear thickening is nonspecific by CT and could reflect patient's provided history of malignancy. 2. There is no pathologic lymphadenopathy in the neck. 3. Other findings as above. Electronically signed by: Leander Page D.O. 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 documented in this encounter Administered Medications Inactive Administered Medications - up to 3 most recent administrations Medication Order MAR Action Action Date Dose Rate Site ioversoL (OPTIRAY 350) syringe 75 mL 75 mL, intravenous, Once in imaging, contrast, Starting on 09/11/25 at 0949, For 1 dose Contrast Given 09/11/2025 9:54 AM LIBRARY HISTORIAN 75 mL documented in this encounter Orders Medications Ordered That Brett ht Not Have Been Administered Count Last Ordered Date First Ordered Date ioversoL (OPTIRAY 350) syringe 75 mL 1 02/2025 documented in this encounter Additional Health Concerns Active Problems Noted Date Diagnosed Date Autogenerated Problem 09/04/2025 documented as of this encounter Care Teams Hockey Player Relationship Specialty Start Date End Date Edda Francisco MD [address] [place] [address] PCP - General Dermatology 09/04/25 Edda Francisco MD [address] [place] [address] Dermatology 09/04/25 documented as of this encounter
--- OUTSIDE RECORDS SUMMARY | 2025-09-12 12:35 | XMS_ITS | Encounter Summary ---
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 LOCAL FLAP Jeffrey Modi MD [address] [place] [address] Phone: tel: fax: Referral ID Status Reason Start Date Expiration Date Visits Re quested Visits Authorized [id number] 09/04/2025 1 1 Encounter Details Date Type Department Care Team (Latest Contact Info) Description 09/12/2025 12:35 PM CHEESE PROCESSOR - 09/12/2025 7:53 PM CHEESE PROCESSOR Hospital Encounter [facility] Operating Room [address] [place] [address] Jeffrey Modi MD [address] [place] [address] Squamous cell carcinoma of skin of ear, unspecified laterality Discharge Disposition: Discharge to home or self care Social History Tobacco Use Types Packs/Day Years Used Date Smoking Tobacco: Former Cigarettes 1 39 1 959 - 1998 Passive Smoke Exposure: Past Smokeless Tobacco: Former Chew Quit: 1984 Tobacco Cessation:Counseling Given: Not Answered Alcohol Use Standard Drinks/Week Comments Yes 2 [...] on file Legal Sex Male 9:04 AM CHEESE PROCESSOR Gender Identity Not on file Sexual Orientation Not on file documented as of this encounter Last Filed Vital Signs Vital Sign Reading Time Taken Comments Blood Pressure 135/74 09/12/2025 7:40 PM CHEESE PROCESSOR Pulse 85 09/12/2025 7:40 PM CHEESE PROCESSOR Temperature 37 C (98.6 F) 09/12/2025 7:30 PM CHEESE PROCESSOR Respiratory Rate 22 09/12/2025 7:40 PM CHEESE PROCESSOR Oxygen Saturation 94% 09/12/2025 7:40 PM CHEESE PROCESSOR Inhaled Oxygen Concentration - - Weight 95.3 kg (210 lb) 09/12/2025 1:32 PM CHEESE PROCESSOR Height 177.8 cm (5' 10) 09/05/2025 11:29 AM CDT Body Mass Index 30.13 09/05/2025 11:29 AM CDT documented in this encounter Functional Status * Difference in Last Two Neto Scores Answer Date of Assessment Author -22 09/12/2025 1:26 PM CHEESE PROCESSOR Laura Shah, MEENU * Question Answer Date of Assessment Author MAP (mmHg) 92 09/12/2025 7:40 PM CHEESE PROCESSOR Ashley Powell RN * Question Answer Date of Assessment Author Zurita Fall Risk Score (Score >= 45 places fall precaution order) 35 09/12/2025 1:26 PM Latasha Rao RN Prior Fall Event (Autopopulated from EMR) None found 09/12/2025 1:26 PM Madyson Rao RN * BP Location Answer Date of Assessment Author Left arm 09/04/2025 2:17 PM CDT Héctor Oconnell CMA * Fall Risk Interventions Question Answer Date of Assessment Author All Low Fall Interventions Applied Yes 09/12/2025 1:26 PM Latasha Rao RN All Moderate Fall Interventions Applied No 09/12/2025 1:26 PM Latasha Rao RN All Moderate Fall Risk Interventions EXCEPT: Gait belt at bedside;PT eval requested or obtained;OT eval requested or obtained;Remain with patient while toileting 09/12/2025 1:26 PM Latasha Rao RN * AUDIT-C Score Answer Date of Assessment Author 4 09/05/2025 11:36 AM Esther Thompson RN * Alcohol Use Question Answer Date of Assessment Author Q1: How often do you have a drink containing alcohol? 2-3 times a week 09/05/2025 11:36 AM Esther Thompson RN Q2: How many drinks containing alcohol do you have on a typical day when you are drinking? 1 or 2 09/05/2025 11:36 AM Esther Thompson RN Q3: How often do you have six or more drinks on one occasion? Less than monthly 09/05/2025 11:36 AM Esther Thompson RN * Integumentary Question Answer Date of Assessment Author Skin Integrity Surgical incision 09/12/2025 7:30 PM Ashley Portillo RN Integumentary (WDL) X 09/12/2025 7:30 PM Ashley Portillo RN Skin Location R ear 09/12/2025 1:26 PM Latasha Pritchett RN * Neto Scale Question Answer Date of Assessment Author Neto Scale Used Neto 09/12/2025 1:26 PM Latasha Rao RN * Question Answer Date of Assessment Author Hearing - Right Ear Hard of hearing 09/05/2025 11:23 A M CDT Esther Nelson RN Hearing - Left Ear Hard of hearing 09/05/2025 11:23 AM CDT Esther Nelson RN Assistive Devices/DME Eyeglasses 09/05/2025 11:23 AM CDT Esther Nelson RN * BP Location Answer Date of Assessment Author Left arm 09/04/2025 2:17 PM CDT Héctor Oconnell CMA * Fall Risk Interventions Question Answer Date of Assessment Author All Low Fall Interventions Applied Yes 09/12/2025 1:26 PM CHEESE PROCESSOR Latasha Shah RN All Moderate Fall Interventions Applied No 09/12/2025 1:26 PM CHEESE PROCESSOR Latasha Shah RN All Moderate Fall Risk Interventions EXCEPT: Gait belt at bedside;PT eval requested or obtained;OT eval requested or obtained;Remain with patient while toileting 09/12/2025 1:26 PM CHEESE PROCESSOR Latasha Shah RN documented as of this encounter Mental Status * Question Answer Entry Date Author Level of Consciousness Alert;Awake 7:30 PM CHEESE PROCESSOR Ashley Hutchins RN Orientation Oriented to person;Oriented to place;Oriented to time 09/12/2025 7:30 PM CHEESE PROCESSOR Ashley Hutchins RN Neuro (WDL) X 09/12/2025 7:30 PM CHEESE PROCESSOR Ashley Hutchins RN documented in this encounter Discharge Instructions * Discharge Instructions* Jodi Holman MD - 09/12/2025 5:50 PM CHEESE PROCESSOR ENT Discharge Instructions Procedure: Right ear surgery with local skin closure When to call your doctor: You have a fever of more than 101.5. You have redness or swelling around your incision. The pain in your incision starts hurting very badly. Your incision starts draining. You notice a foul odor from surgical area. You have pus, bleeding, or drainage around your incision site. Your incision is opening. You notice a foul odor. You have persistent nausea and/or vomiting, You feel dizzy or like you may pass out. You have a hard time breathing. You have any questions or concerns. Phone numbers [facility] ENT Appointment Scheduling: Urgent Concerns after hours or Weekends: Call and ask for the ENT resident economic development director During Regular Business Hours (8am-5pm Wednesday through Wednesday): Dr. Modi (Nickie Zuñiga RN): [phone] Diet: Regular Diet Please DO NOT WEAR GLASSES OR ANYTHING THAT GOES ACROSS YOUR FACE/ONTO YOUR EAR UNTIL YOUR FOLLOW UP APPOINTMENT Activity: Do NOT LIFT ANYTHING GREATER THAN A GALLON OF MILK UNTIL YOUR FOLLOW UP APPOINTMENT. Light activity for the next 24 hours. Resume normal activity afterwards as tolerated. You may feel tired and run down after surgery. It is normal to sleep more or take more naps. Light activity is okbut avoid heavy house work, yard work or strenuous exercise. Short walks are encouraged. Activitiescan be slowly increased as tolerated. Do not drive, operative heavy machinery, or make important legal decisions for the next 24 hours orwhile taking narcotic pain medication. Driving privileges are left up to the discretion of your physician and will be discussed further at your follow up appointment. You cannot drive while taking narcotic pain medication. Showering You may shower normally, allowing the water to wash gently over the suture line, but do not scrub the sutures or incisions. It is fine for soap to wash over the incisions, but it must be rinsed off. You may use a mild shampoo to wash your hair (baby shampoo is fine). If your wound gets wet, lightlydab it dry. DO NOT submerge yourself in any water that will cover the incision (bathtub, hot tub, swimming pool, pools, lakes, diaz, oceans), unless specifically cleared by your doctor. Wound Care: ABSORBABLE SUTURES. They will dissolve over the next few weeks. You may apply bacitracin, polymixin, or neosporin antibiotic ointment three times a day over your incision for 3 days. Then you may apply vaseline ointment to your incisions three times daily until follow up. Keep your incision clean. If any crusting forms on suture line, clean gently with Q-tip dipped in a 50:50 mixture of peroxideand water and apply vaseline twice a day. Call for increased problems including increased pain, redness or swelling. Keep the wound covered when in a place where the wound might get dirty but otherwise leave open to air. Do not scrub, rub, or pick at the incision. Please take extra care to avoid sun exposure until the wounds are healed and then protect the incision sites with sunscreen (about 6 weeks after your surgery) as sun exposure can interfere with the healing process. Sun exposure retards healing and causes discoloration of the scar that may never disappear. DO NOT swim (pool, atkinson, ocean, river, or hot tub, etc.) until the wound has completely healed and you have been seen by your surgeon. This can cause infection. Do not smoke tobacco Smoking has been proven to interfere with the normal wound healing. Smoking will dramatically reduce the success rate of your surgery. Your primary care doctor can prescribe a patch to help you stop smoking if you would like. Medications: - Pain: You may have been prescribed Acetaminophen (Tylenol) or you may buy it at any pharmacy or drugstore. You should take Acetaminophen (Tylenol) 650mg every 6 hours for pain. Taking this in addition to your narcotic pain medication will provide greater pain relief. Do not exceed 3g (3000mg) of Tylenol in a 24h period. You have been prescribed oxycodone or another narcotic medication to help with your pain. You should only use this pain medication to help with pain that is not adequately controlled by tylenol. You should not drive while taking narcotic pain medication. Narcotic pain medication can make you constipated; take a stool softener as needed. - Stool Softener: Take stool softener (Tcis-[id number]-[id number] or prescription) while taking narcotic medication to prevent constipation. Laxatives not recommended. - Antibiotic: please take the whole course of your antibiotic as prescrived Pathology: Final Pathology will take 7-10 days to result. This should be discussed with you at your scheduled follow up appointment. If for some reason it is not and you have not received a call from the officeto tell you your final pathology within 2 weeks of discharge, please contact the surgeon's nurse atthe number listed below or contact the main office line at [phone]. Follow up: You should follow up in Jeffrey Matta MD's clinic as scheduled below at one of the following locations: [address] [facility] [address], 5th floor, [place] [address] [address] [facility] [address] [facility] [address], [place] [address] [place] CLN [address] [facility] [address], [address], [place] [address] [facility] [address] [facility], [address], [place] [address] CLN CH [address] [facility] [address], [address], [place] [address] Future Appointments Date Time Provider Department Center 09/25/2025 3:40 PM Jeffrey Modi MD CLN ACB5 OY OTHER FOLLOW UP: 1. PCP - for management of all chronic illnesses Questions: If you have any concerns or questions, or develop worrisome symptoms such as worsening pain or swelling, bleeding, fever, or vomiting, call your doctor. SE PROCESSOR documented in this encounter Medications at Time of Discharge [...] times a day as needed (pain) omega 1-gno-yom-fish oil 1,000 (120-180) mg capsuleIndications :hypertriglyceride kary [...] tablet 09/12/2025 documented as of this encounter Ordered Prescriptions Prescription Sig Dispense Quantity Refills Last Filled Start Date End Date cefadroxil (DURICEF) 500 mg capsule Take 1 capsule (500 mg total) by mouth 2 (two) times a day for 3 days 6 capsule 09/12/2025 oxyCODONE (ROXICODONE) 5 mg immediate release tabletIndications: Pain Take 1 tablet (5 mg total) by mouth every 4 (four) hours as needed for pain 5 tablet 09/12/2025 documented in this encounter Discharge Disposition Disposition Code Departure Means Destination Comment s Discharge to home or self care Private Vehicle documented in this encounter H&P Notes * Jeffrey Modi MD - 09/12/2025 1:37 PM CST I have reviewed the H&P, examined the patient, and endorse the findings as written. SE PROCESSOR Source Note - Jeffrey Modi MD - 09/04/2025 2:20 PM CDT Images from the original note were not included. DATE OF SERVICE: 09/04/2025 Viral Grant : 1940 85 y.o. 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 Mary Francisco) HISTORY: Viral Grant was evaluated today in the [facility]. The patient is accompanied by his friend Jelena. To briefly review, the patient is a 85 y.o. years-old male with a 2 month history of a right superior pinna SCCA. The patient reports a history of prior nonmelanoma skin cancers. The patient's past medical history is unremarkable. He lives alone and plays golf 5 times a week. PHYSICAL EXAM: Vitals: See electronic medical records for vital signs. General Appearance: Well-developed, well-nourished in no apparent distress. Breathing comfortably. Cardiovascular: Extremities are warm and well perfused. Pulmonary: Normal quiet breathing. No respiratory distress, stridor, or wheeze. Facial: Normocephalic, atraumatic. No facial lesions. Eyes: Moist conjunctiva. Neuro/Psych: Alert and oriented. Normal affect. Facial nerve and hypoglossal nerve intact bilaterally. Spinal accessory nerve intact bilaterally. Oral Cavity/Oropharynx: No worrisome lesions noted. Neck: No cervical lymphadenopathy or masses present. Salivary gland examination is normal bilaterally. 08/15/2025 after Mohs, blue thapa area of positive margins 09/04/2025 DATA REVIEWED: Clinic note from Dr. Francisco 08/15/2025 indicating Mohs surgery for right superior abdon helix squamous cell carcinoma. Preoperative size 3 x 2 cm, after 2 stages defect was 4 x 2.5 cm down to cartilage. Persistent deep margins at anterior superior pinna. Pathology report from 06/27/2025: ASSESSMENT & PLAN: Right superior helix/pinna SCCA: We discussed the aggressive nature of the squamous cell carcinoma deep within the right superior pinna. I would recommend workup with neck and chest CT scan. I would recommend partial auriculectomy to clear the margin which would require a deeper resection. We discussed reconstruction with local flaps. We discussed the likely need for adjuvant radiation therapy given the high-risk area of the ear as well as the deep margin. The patient expressed understanding and desire to proceed with surgery. -neck and chest CT scan -surgery next week -Referral to Radiation Oncology, [facility], Dr. Johnson FOLLOW-UP: In the OR can also do a radiation oncology referral Jeffrey Modi M.D., FACS Professor Head and Neck Surgical Oncology, Microvascular Reconstruction Department of Otolaryngology [facility] [employer] [facility] No past medical history on file. No past surgical history on file. No current outpatient medications on file prior to visit. No current facility-administered medications on file prior to visit. No family history on file. Social History Tobacco Use Smoking status: Former Types: Cigarettes Smokeless tobacco: Former Types: Chew Substance and Sexual Activity Drug use: None Sexual activity: None Alcohol Use: Not on file documented in this encounter Nursing Notes * Ashley Hutchins RN - 09/12/2025 7:20 PM CST 450ml clear urine from straight cath. Pt tolerated procedure. Instructed patient to increase oral intake if not nausea. If can't pee at home with the urge feeling later tonight, he may need to go seek medical attention. Verbalized understanding. SE PROCESSOR SE PROCESSOR * Ashley Hutchins RN - 09/12/2025 7:15 PM CST Pt complaint of urge to void but cannot fully emptying bladder. (Pt said he had problem to pee postop from previous gall bladder surgery.) Voided about 150ml still feels he needs to go. Bladder [id number]. Talked to economic development director ENT. Ok to straight cath once. Ok go home after. SE PROCESSOR SE PROCESSOR documented in this encounter Miscellaneous Notes * Op Note - Jeffrey Modi MD - 09/12/2025 2:38 PM CST DATE OF SURGERY: 09/12/2025 PREOPERATIVE DIAGNOSIS: Right superior pinna squamous cell carcinoma POSTOPERATIVE DIAGNOSIS: Same PROCEDURE PERFORMED: Right partial auriculectomy Right superiorly based preauricular skin transposition flap ATTENDING SURGEON: Jeffrey Modi MD CONVALESCENT SITTER SURGEON: Surgeon(s): Manny Parsons MD Rich, Jason Thomas, MD ANESTHESIA: General INDICATIONS FOR SURGERY: Mr. Grant is a 85 y.o. male with a right superior pinna squamous cell carcinoma in the triangular fossa. He underwent Mohs resection, however there were deep positive margins that could not be cleared in the triangular fossa at the root of the helix and the patient was referred here for additional resection and reconstruction. Risks and benefits were discussed with the patient who wished to proceed. OPERATIVE NOTE: Informed consent was obtained and the patient was taken to the operating room where anesthesia was administered. Appropriate lines and monitoring were carried out. A preoperative time out was performed and the surgical site confirmed. Preoperative antibiotic were administered. and The patient was prepped and draped in sterile fashion. The patient had a granulating wound in the right superior pinna on the anterior aspect extending into the triangular fossa of the root of the helix. The photos from his Mohs surgeon that demonstrated the area of positivity were reviewed. Nerve to clear this is would require resection of the cartilage of the were the helix. An appropriate margin of skin around the granulating wound which included the root of the helix skin which had not been operated on yet was drawn. This was injected with local. Using double scalpels technique circumferential margins weretaken. We then deepened our dissection superiorly around the root of the helix cartilage so that this could be resected in its entirety. On the inferior aspect we incised through the cartilage. This was quite firm and calcified. We then deepened our dissection through the cartilage around the lateral aspect. A small rent occurred through the posterior pinna but this is recognized and not enlarged. We then resected the lesion preserving the posterior pinna skin, resecting the entire root of the helix cartilage and superior pinna cartilage. This was oriented with a stitch superior and sent for permanent analysis. All margins returned clear however in the lateral aspect where we cross through granulation tissue there was concern for dysplasia but this had already been cleared by his Mohs surgeon. The defect was approximately 3.5 x 3.5 cm. A superiorly based preauricular skin flap was design ed with the dimensions of 2.5 x 6 cm tapering inferiorly. This was injected with local. The skin was incised down to the parotid fascia and elevated superficial to the parotid fascia. The flap was then transposed into the superior pinna defect. The donor site closed easily with the Vicryl sutures and running 4-0 chromic suture. The flap was trimmed to fit the anterior pinna defect and secured with interrupted and running 4-0 chromic sutures. The posterior pinna skin rent was closed with running4-0 chromic suture. The flap had excellent appearance at the end of the case. The patient was then awakened and taken recovery stable condition. ATTENDING SURGEON ATTESTATION: I was present and participated in all of the rivas portions of the surgery which included the partialauriculectomy, the design and inset of the flap. There was an overlapping surgery in which I was involved, however no rivas portions overlapped. In my absence Dr. Holman and/or Dr. Parsons was immediately available. SE PROCESSOR * Perioperative Nursing Note - Esther Nelson RN - 09/05/2025 11:39 AM CDT Center for Preoperative Assessment and Planning Perioperative Nursing Note PAP Modalities - [facility]: Telephone Preoperative Evaluation ([facility]) - TELEPHONE ONLY, NO PHYSICAL EXAM Date: 09/05/25 This assessment was completed with the patient. Vitals: 09/05/25 1129 Weight: 96.2 kg (212 lb) Height: 177.8 cm (5' 10) CHEST CIRCUMFERENCE: n/a Social History Tobacco Use Smoking Status Former Current packs/day: 0.00 Average packs/day: 1 pack/day for 39.0 years (39.0 ttl pk-yrs) Types: Cigarettes Start date: 1958 Quit date: 1997 Years since quittin.8 Passive exposure: Past Smokeless Tobacco Former Types: Chew Quit date: 1984 Substance and Sexual Activity Drug Use Never Alcohol Use Q1: How often do you have a drink containing alcohol?: 2-3 times a week Q2: How many drinks containing alcohol do you have on a typical day when you are drinking?: 1 or 2 Q3: How often do you have six or more drinks on one occasion?: Less than monthly Outpatient Medications Marked as Taking for the 09/12/25 encounter (Hospital Encounter) Medication Sig Dispense Refill acetaminophen (TYLENOL) 500 mg tablet Take 2 tablets (1,000 mg total) by mouth every 6 (six) hours as needed for pain amLODIPine-benazepriL (LOTREL) 10-40 mg per capsule 1 capsule by other route nightly aspirin 81 mg enteric coated tablet Take 1 tablet (81 mg total) by mouth nightly escitalopram (LEXAPRO) 10 mg tablet 1 tablet (10 mg total) by other route nightly finasteride (PROSCAR) 5 mg tablet Take 1 tablet (5 mg total) by mouth nightly lovastatin (MEVACOR) 10 mg tablet 1 tablet (10 mg total) by other route nightly metoprolol XL (TOPROL-XL) 25 mg extended release tablet Take 1 tablet (25 mg total) by mouth nightly naproxen sodium 220 mg capsule Take 1 tablet by mouth 2 (two) times a day as needed (pain) omega 0-zxz-jeh-fish oil 1,000 (120-180) mg capsule Take 1 capsule (1,000 mg total) by mouth nightly omeprazole (PriLOSEC) 20 mg capsule Take 1 capsule (20 mg total) by mouth nightly as needed (GERD) Implants Stent Stent - Implanted Coronary Artery As of 09/05/2025 Status: Implanted SKIN Piercings Remaining: No SCREENINGS Oseas index score: 100 Travel/Exposure Screening: Travel Screening Have you traveled outside the [place] in the last 6 months?: No Exposure Screening Have you been exposed to anyone who is sick in the last 30 days?: No Have you been exposed to or tested positive for COVID-19 within the last 10 days?: No Infectious Disease Screening Are you having any of the following:: None PATIENT CARE PLANNING Advance Directives (For Healthcare) Have you reviewed your Advance Directive and is it valid for this stay?: No Advance Directive: Patient does not have advance directive, Patient refused information Information Provided on Healthcare Directives: No Communication/Otc Clerk Needs Communication Barriers: Visual Communication Needs: Glasses Does caregiver's language differ from patient's?: No Assistive Devices/DME: Eyeglasses Hearing - Right Ear: Hard of hearing Hearing - Left Ear: Hard of hearing Discharge Planning Type of Residence: Private residence Living Arrangements: Alone Support Systems: Friends/neighbors Patient expects to be discharged to: Private residence MACHINE MAINTENANCE NO ADDITIONAL COMMENTS/ FOLLOW UP * Pre-Procedure Instructions - Esther Nelson RN - 09/05/2025 11:38 AM CDT [facility]) PRE-SURGICAL NURSING INSTRUCTIONS Telephone Assessment These instructions were completed with the patient. General Information Discussed with Patient: Surgery location provided to patient. Arrival time and surgical time will be provided to the patient by their surgeon. You should wear clothing that is clean, loose, comfortable and easy to get in and out of on the dayof surgery. You should remove nail coverings, artificial nails and nail new zealander prior to the day of surgery. This is to lower your risk of infection and to allow the day of surgery team to monitor your oxygen levels. You should leave your valuables and any jewelry at home. No metal or piercings are allowed in the operating room. You should bring your insurance card, a photo ID (example: Data Network Architect's License) and a method of payment for any insurance copay, deductible or copay for discharge medications. You should bring a complete, up-to-date, list of all your medications on the day of surgery, including any over the counter medications or supplements you may take. Please note on your medication list, the last date & time you took each medication. The healthcare team, on the day of surgery, will ask for this information. You should bring your Advanced Directive and/or Living Will with you on the day of surgery if you have not verified a copy is already in your Epic Chart. If you are having surgery at [facility], please arrive on the day of surgery with the name and phone number of your local 24 hour pharmacy. Due to evening discharges, your routine pharmacy may be closed. In order to obtain your prescriptions that evening, your surgeon may need to send prescriptions to this pharmacy or have you take prescriptions to this pharmacy when you are discharged. Without this information, you may not be able to obtain your prescriptions that evening. 10. If you smoke, STOP smoking at least 2 weeks before surgery to help prevent infection and help your body recover faster. Ask your surgeon for tools to help you quit or call 2-191-NDQMLSV ( ). Visit [employer] for more information. You will not have access to tobacco products, alcohol or illegal drugs during your hospital stay. Eye Surgery Process for Patients: N/A A Guide for Patients Having Surgery: Your Pathway to Excellent Care OUR GOAL IS TO PROVIDE YOU WITH EXCELLENT CARE Use this guide to learn about what you can do before, during and after surgery to help your recovery. You are the most important person on your health care team. By becoming informed and involved, you can contribute to the success of your surgery. If your surgeon's directions are different than those in this guide, talk with your nurse or surgeon to confirm the information. It is important that you understand how to take care of yourself at home after surgery. Be sure to bring this guide with you on the day of surgery and take it home with you after surgery. Write down questions for your nurse or surgeon on the last page of this booklet. Important pages to be reviewed BEFORE surgery: Page 1: QR codes for Surgery Center maps Page 3: Types of Anesthesia Page 5: Tips for the day & night before surgery Page 6: When to stop eating BEFORE surgery and examples of clear liquids Page 7-10: Preventing Infection: Chlorhexidine Gluconate (CHG) Bathing Instructions You may access A Guide for Patients Having Surgery: Your Pathway to Excellent Care by the followinglink: [email or web address] How To Prepare Your Skin For Surgery Below is the Pre-Surgical Bathing Protocol you should follow for your surgery. If your surgeon provides you different bathing instructions, please follow your surgeon's orders. 2-Day CHG Bathing Protocol (no nasal ointment): PREVENTING INFECTION (DECOLONIZATION): Decolonization is the use of a topical antiseptic soap to remove bacteria (germs) from the skin's surface. Antiseptic soap: Chlorhexidine gluconate or CHG (brand name: Hibiclens??) Before surgery, your entire body must be thoroughly cleaned. CHG helps to reduce the bacteria on your skin. You may be given one or more bottles of CHG or you may be asked to obtain from your preferred pharmacy. Be sure to ask your pharmacist if you need help finding this product. 2-Day CHG Bathing Protocol The Evening Before Surgery: Take a shower with Antiseptic soap (CHG). Follow the steps for Showering with Antiseptic Soap (CHG) below. Change all linens on your bed so you are sleeping in clean fresh sheets and pillowcases. Remove nail coverings, artificial nails and nail new zealander. The Morning of Surgery: Take a shower with Antiseptic soap (CHG). Follow the steps for Showering with Antiseptic Soap (CHG) below. Put clean clothes on after you shower. Instructions on SHOWERING WITH ANTISEPTIC SOAP (CHG) What You Need For Each Shower 60 mL (?? cup) of CHG 2 clean washcloths CHG Bathing Instructions First, shampoo and rinse your hair with your own shampoo (no conditioners). Do this so the antiseptic soap isn't washed off by your shampoo. Wash face with warm water. Turn off shower and stand away from the water. Use 2 clean washcloths to apply the antiseptic soap to all areas as described below: Pour 30 mL (1/8 cup) of CHG on washcloth #1: Using washcloth- start at jawline and firmly massage the soap into the skin in a circular motion to clean neck, shoulders, chest, back, both armpits, arms, hands and abdomen. Finish with legs and feet. Pour 30 mL (1/8 cup) of CHG on washcloth #2: Using washcloth- firmly massage the soap into the skinin a circular motion to clean groin area, perineum and buttocks. (Do not use CHG on genital area.) [place]: The CHG antiseptic soap will not bubble or lather very much. If you get soap in your eyes, ears or mouth, rinse well with cool water. When finished, leave the soap on your skin for 2 minutes before rinsing. Dry off with a clean fresh towel. Wear clean clothes or pajamas to sleep in. After showering DO NOT put on deodorant, hair products or conditioners, lotions or creams, powders,Vaseline or any non-essential products. If you cannot reach the surgical site, such as the back, please have someone help you. Shaving: You may shave your face, legs and underarms during your evening shower before you apply the CHG antiseptic soap. Be careful not to cut or matt your skin. Avoid shaving on the day of surgery. If you have questions, please call the CPAP Staff at [phone], Wednesday-Wednesday 8am-4:30pm. All patients should read the below section: Information on [facility]: Please view [email or web address] (Patient & Visitor Information) for additional details regarding Advanced Directive forms, AWARE, directions, parking information, lodging, Internet access, dining and more. Information on [facility] or [facility] ([facility] [place]): Please view [email or web address] (Patient and Visitor Information) for parking, directions, lodging and more. For MyChart information, to activate account or password recovery, please go to [email or web address] or call [phone] (toll-free: [phone]), Wed- Wednesday 8am-5pm. Information for Suicide Prevention: National Suicide Prevention Lifeline (7-918- 730-JQXD (9116)) or call or text 405. Chat resources: [employer]. Day of Surgery Arrival Times: For patients having surgery @ [facility] ([facility]), you will be notified of your day of surgery arrival time by either the [facility] Pre-Op OR team or your surgeon's office. If you have not been notified by 1pm THE BUSINESS DAY BEFORE your surgery, please call your surgeon's office Jeffrey Modi MD . You may also call [phone] and ask for your surgeon's office. For patients having surgery @ [facility], if you have not been notified of your surgery time by 4pm THE BUSINESS DAY BEFORE surgery, please contact your surgeon's office for day of surgery arrival time Jeffrey Modi MD . You may also call [phone] and ask for your surgeon's office. For patients having surgery at [facility], if you have notbeen notified of your surgery time by 4pm THE BUSINESS DAY BEFORE your surgery, please contact yoursurgeon's office for day of surgery arrival time Jeffrey Modi MD . You may also call [phone] and ask for your surgeon's office. For patients having surgery @ [facility] ([facility]), you will be notified of your day of surgery arrival time by either the [facility] Pre-Op OR team or your surgeon's office. For patients having Ears/Nose Throat Surgery, Urology Surgery or Neuro Spine Surgery, the [facility] Pre-Op Team will contact you by 4pm THE BUSINESS DAY BEFORE surgery. For all other [facility] surgeries, if you have not been notified of your surgery time by 2pm THE BUSINESS DAY BEFORE your surgery, please call your surgeon's office Jeffrey Modi MD . They will be able to direct you to who will provide your surgery time. You may also call the surgery center at [phone] and ask for your surgeon's office. For [facility], if your surgeon's office or the surgery centerhas not notified you of your surgery time by 3pm THE BUSINESS DAY BEFORE your surgery, please call the surgery center at [phone]. The [facility] ([facility]) does not provide arrival times for theday of surgery or provide the duration of surgery. This information is provided by your surgeon's office or by the center where you are having surgery. We appreciate your understanding. 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 Author Autogenerat ed Goal Care Plan Autogenerated Problem No Lesley Gaitan, A documented as of this encounter Procedures Procedure Name Priority Date/Time Associated Diagnosis Comments LOCAL FLAP 09/12/2025 3:41 PM CHEESE PROCESSOR Squamous cell carcinoma of skin of ear, unspecified laterality Case Notes 09/11@0919- Per Chiquita add Jaqueline to case - [facility] [place] EXCISION EXTERNAL EAR PARTIAL SIMPLE REPAIR 09/12/2025 3:41 PM CHEESE PROCESSOR Squamous cell carcinoma of skin of ear, unspecified laterality Case Notes 09/11@19- Per Chiquita add Jaqueline to case - [facility] documented in this encounter Visit Diagnoses Diagnosis Squamous cell carcinoma of skin of ear, unspecified laterality documented in this encounter Admitting Diagnoses Diagnosis 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 omeprazole (PriLOSEC) 20 mg capsuleIndication s:GERD Take 1 capsule (20 mg total) by mouth nightly as needed (GERD) acetaminophen (TYLENOL) 500 mg tabletIndications :Pain Take 2 tablets (1,000 mg total) by mouth every 6 (six) hours as needed for pain naproxen sodium 220 mg capsuleIndication s:Pain Take 1 tablet by mouth 2 (two) times a day as needed (pain) added in this encounter Active and Recently Administered Medications Times are shown in CHEESE PROCESSOR. Continuous Medication Order 09/10/2025 09/11/2025 09/12/2025 Lactated Ringer's (LR) infusion 30 mL/hr, intravenous, Continuous, Starting on Wed09/12/25 at 1400, Pre-Op 1325 (Not Given - Pr ovider: Latasha Shah RN - Reason: Other - Comment: duplicate charting)1338 (Off Pump Infusion - Provider: Latasha Shah RN)1610 (New Bag - Provider: Heather Rivera MD)1610 (Rate/Dose Change - Provider: Heather Rivera MD)1611 (Rate/Dose Change - Provider: Heather Rivera MD)1612 (Rate/Dose Change - Provider: Heather Rivera MD)1616 (Rate/Dose Change - Provider: Heather Rivera MD)1743 (Stopped - Provider: Heather Rivera MD) PRN Medication Order 09/10/2025 09/11/2025 09/12/2025 bacitracin-polymyxin B (POLYSPORIN) 500-10,000 unit/gram ointment tube (CANCELED) As needed, Starting on Wed09/12/25 at 1716, Intra-Op 1716 (Given - Provid er: Manny Parsons MD) BUPivacaine-EPINEPHrine (MARCAINE with EPI) 0.25 %-1:200,000 preservative free injection (CANCELED) As needed, Starting on Wed09/12/25 at 1616, Intra-Op 1616 (Given - Provid er: Manny Parsons MD) fentaNYL (SUBLIMAZE) preservative free injection 50 mcg 50 mcg, intravenous, Once as needed, breakthrough pain, Starting on Wed09/12/25 at 1752, For 1 dose, Phase I, Administer for uncontrolled or increasing pain while in PACU only. haloperidol lactate (HALDOL) injection 1 mg 1 mg, intravenous, Once as needed, nausea, vomiting, Starting on Wed09/12/25 at 1752, For 1 dose, Phase I, If nausea/vomiting not relieved by prochlorperazine within 30 minutes. HYDROmorphone (DILAUDID) injection 0.2 mg 0.2 mg, intravenous, Administer over 2 Minutes, Every 10 min PRN, 1st line for pain, Starting on Wed09/12/25 at 1752, Phase I, Notify Anesthesiologist if total PACU dose reaches 2 mg and pain score 5/10 or more., Indications: Pain naloxone (NARCAN) 0.4 mg/mL injection 0.04-0.4 mg 0.04-0.4 mg, intravenous, Once as needed, other, excessive sedation/respiratory depression, Starting on Wed09/12/25 at 1752, For 1 dose, Phase I, Dilute 0.4 mg with 9 mL NS (final concentration 0.04 mg/mL). For respiratory depression (respiratory rate less than 6), administer 0.4 mg IVP over 30 seconds. For excessive sedation administer 0.04 mg (1 mL) every 1 minute until desired level of alertness. For IV, administer over 30 seconds., Indications: Opioid Toxicity prochlorperazine (COMPAZINE) injection 5 mg 5 mg, intravenous, Administer over 2 Minutes, Once as needed, nausea, vomiting, Starting on Wed09/12/25 at 1752, For 1 dose, Phase I, Proceed to haloperidol if no relief within 30 minutes. sodium chloride 0.9% irrigation (CANCELED) As needed, Starting on Wed09/12/25 at 1718, Intra-Op 1718 (Given - Provid er: Manny Parsons MD) documented in this encounter Orders Medications Ordered That Brett ht Not Have Been Administered Count Last Ordered Date First Ordered Date bacitracin-polymyxin B (POLY SPORIN) 500-10,000 unit/gram ointment tube 1 09/12/2025 BUPivacaine-EPINEPHrine (MAR PHIL with EPI) 0.25 %-1:200,000 preservative free injection 1 09/12/2025 ceFAZolin (ANCEF) 2,000 mg/2 0 mL in sterile water (premix) 2,000 mg 1 09/12/2025 fentaNYL (SUBLIMAZE) preserv ative free injection 50 mcg 1 09/12/2025 haloperidol lactate (HALDOL) injection 1 mg 1 09/12/2025 HYDROmorphone (DILAUDID) injection 0.2 mg 1 09/12/2025 naloxone (NARCAN) 0.4 mg/mL injection 0.04-0.4 mg 1 09/12/2025 prochlorperazine (COMPAZINE) injection 5 mg 1 09/12/2025 sodium chloride 0.9% irrigation 1 5 Discharge Count Last Ordered Date First Orde red Date DISCHARGE PATIENT 1 09/12/2025 documented in this encounter Additional Health Concerns Active Problems Noted Date Diagnosed Date Autogenerated Problem 09/04/2025 documented as of this encounter Care Teams Executive Associate Relationship Specialty Start Date End Date Edda Francisco MD [address] [place] [id number] PCP - General Dermatology 09/04/25 Edda Francisco MD [address] [place] [id number] Dermatology 09/04/25 documented as of this encounter
--- OUTSIDE RECORDS SUMMARY | 2025-09-12 14:38 | XMS_ITS | Encounter Summary ---
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 LOCAL FLAP Jeffrey Modi MD [address] [place] [address] Phone: tel: fax: Referral ID Status Reason Start Date Expiration Date Visits Re quested Visits Authorized [id number] 09/04/2025 1 1 Encounter Details Date Type Department Care Team (Late st Contact Info) Description 09/12/2025 2:38 PM MANAGER PUBLISHING - 09/12/2025 6:49 PM MANAGER PUBLISHING Surgery [facility] Operating Room [address] [place] [address] Jeffrey Modi MD [address] [place] [address] AURICULECTOMY PARTIAL. [[id number] (CPT )] Surgery Details Date/Time Status Location OR Service Patient Class Case Class Case Type Trauma Case? 09/12/2025 2:38 PM Posted [facility] OR POD 5 222 Otolaryngology Outpatient Time Sensitive - 3 Weeks Panel 1 Procedure LRB Anes Op Region Wound Class Comments AURICULECTOMY PARTIAL. Right General Ear Class I - Clean LOCAL FLAP Right General Ear Class I - Clean Surgeon Surgeon Role Service Panel Manny Parsons MD Otolaryngo logy 1 Jeffrey Modi MD Primary Otolaryngology 1 Case Notes 09/11@0919- Per Chiquita add Jaqueline to case - DMF documented in this encounter Social History Tobacco Use Types Packs/Day Years [...] on file Legal Sex Male 9:04 AM MANAGER PUBLISHING Gender Identity Not on file Sexual Orientation Not on file documented as of this encounter Last Filed Vital Signs Vital Sign Reading Time Taken Comments Blood Pressure 149/80 09/12/2025 6:30 PM MANAGER PUBLISHING Pulse 101 09/12/2025 6:40 PM MANAGER PUBLISHING Temperature 37.5 C (99.5 F) 09/12/2025 6:00 PM MANAGER PUBLISHING Respiratory Rate 20 09/12/2025 6:40 PM MANAGER PUBLISHING Oxygen Saturation 92% 09/12/2025 6:40 PM MANAGER PUBLISHING Inhaled Oxygen Concentration - - Weight 95.3 kg (210 lb) 09/12/2025 1:32 PM MANAGER PUBLISHING Height 177.8 cm (5' 10) 09/05/2025 11:29 AM CDT Body Mass Index 30.13 09/05/2025 11:29 AM CDT documented in this encounter Functional Status * Difference in Last Two Neto Scores Answer Date of Assessment Author -22 09/12/2025 1:26 PM MANAGER PUBLISHING Laura Shah RN * Question Answer Date of Assessment Author MAP (mmHg) 98 09/12/2025 6:30 PM MANAGER PUBLISHING Ashley Powell RN * Question Answer Date of Assessment Author Zurita Fall Risk Score (Score >= 45 places fall precaution order) 35 09/12/2025 1:26 PM MANAGER PUBLISHING Latasha Shah RN Prior Fall Event (Autopopulated from EMR) [...] 1 or 2 09/05/2025 11:36 AM Esther Thompson, MEENU Q3: How often do you have six or more drinks on one occasion? Less than monthly 09/05/2025 11:36 AM Esther Thompson RN * Integumentary Question Answer Date of Assessment Author Skin Integrity Surgical incision 09/12/2025 6:30 PM Ashley Portillo RN Integumentary (WD) X 09/12/2025 6:30 PM Ashley Portillo RN Skin Location R [...] Ear Hard of hearing 09/05/2025 11:23 AM GONZALEZT Esther Nelson RN Assistive Devices/DME Eyeglasses 09/05/2025 [...] toileting 09/12/2025 1:26 PM Latasha Rao RN documented as of this encounter Mental Status * Question Answer Entry Date Author Level of Consciousness Responds to voice;Alert 09/12/2025 6:30 PM Ashley Perez RN Orientation Oriented to person;Oriented to place;Oriented to time 09/12/2025 6:30 PM Ashley Perez RN Neuro ([facility]) X 09/12/2025 6:30 PM Ashley Perez RN documented in this encounter Discharge Instructions * Discharge Instructions* Jodi Holman MD - 09/12/2025 5:50 PM MANAGER PUBLISHING ENT Discharge Instructions Procedure: Right ear surgery [...] have any questions or concerns. Phone numbers [facility] ENT Appointment Scheduling: Urgent Concerns after hours or Weekends: Call and ask for the ENT resident air control electronics operator During Regular Business Hours (8am-5pm Wednesday through Wednesday): Dr. Modi (Nickie Zuñiga RN): [phone] Diet: Regular Diet Please DO NOT WEAR [...] needed. - Stool Softener: Take stool softener (Pbix-yyw-onitieu or prescription) while taking narcotic medication to [...] or contact the main office line at [phone]. Follow up: You should follow up in Jeffrey Matta MD's clinic as scheduled below at one of the following locations: [facility] [address], 5th floor, [facility] [address] Advanced Medicine [address], [place] [address] OY CLN [address] [facility] [address] [address] [facility] [address], [address], [place] [address] CLN MOB[address] [facility] [address], [address], [place] [address] Future Appointments Date Time Provider Department Center 09/25/2025 3:40 PM Jeffrey Modi MD CLN [facility] OY OTHER FOLLOW UP: 1. PCP - for management of all chronic illnesses Questions: If you have any concerns or questions, or develop worrisome symptoms such as worsening pain or swelling, bleeding, fever, or vomiting, call your doctor. GER PUBLISHING documented in this encounter Medications at Time [...] day for 3 days 6 capsule 09/12/2025 5 escitalopram (LEXAPRO) 10 mg tabletIndications: Anxiety with [...] times a day as needed (pain) omega 5-rsf-yhn-fish oil 1,000 (120-180) mg capsuleIndications :hypertriglyceride kary [...] day for 3 days 6 capsule 09/12/2025 5 oxyCODONE (ROXICODONE) 5 mg immediate release tabletIndications: [...] patient, and endorse the findings as written. GER PUBLISHING Source Note - Jeffrey Modi MD - 09/04/2025 2:20 PM CDT Images from the original note were not included. DATE OF SERVICE: 09/04/2025 Viral Grant : 1940 85 y.o. 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 Mary Francisco) HISTORY: Viral Grant was evaluated today in the [facility] Otolaryngology - Head and Neck Surgery Clinic. [...] -surgery next week -Referral to Radiation Oncology, [facility], Dr. Johnson FOLLOW-UP: In the OR can also do a radiation oncology referral Jeffrey Modi M.D., FACS Professor Head and Neck Surgical Oncology, Microvascular Reconstruction Department of Otolaryngology [facility] [employer] [facility] No past medical history [...] to go seek medical attention. Verbalized understanding. GER PUBLISHING GER PUBLISHING * Ashley Hutchins RN - 09/12/2025 7:15 PM CST Pt complaint of urge to void but cannot fully emptying bladder. (Pt said he had problem to pee postop from previous gall bladder surgery.) Voided about 150ml still feels he needs to go. Bladder [id number]. Talked to air control electronics operator ENT. Ok to straight cath once. Ok go home after. GER PUBLISHING GER PUBLISHING documented in this encounter Miscellaneous Notes * Op Note - Jeffrey Modi MD - 09/12/2025 2:38 PM CST DATE OF SURGERY: 09/12/2025 PREOPERATIVE DIAGNOSIS: Right superior pinna squamous cell carcinoma POSTOPERATIVE DIAGNOSIS: Same PROCEDURE PERFORMED: Right partial auriculectomy Right superiorly based preauricular skin transposition flap ATTENDING SURGEON: Jeffrey Modi MD SUPERVISOR VEGETABLE FARMING SURGEON: Surgeon(s): Manny Parsons MD Rich, Jason [...] aspect we incised through the cartilage. This w as quite firm and calcified. We then deepened [...] Holman and/or Dr. Parsons was immediately available. GER PUBLISHING * Perioperative Nursing Note - Esther Nelson RN - 09/05/2025 11:39 AM CDT [facility] Perioperative Nursing Note PAP Modalities - [facility]: Telephone Preoperative Evaluation ([facility]) - TELEPHONE ONLY, NO PHYSICAL EXAM Date: [...] times a day as needed (pain) omega 4-xqj-szg-fish oil 1,000 (120-180) mg capsule Take 1 [...] information Information Provided on Healthcare Directives: No Communication/Pantomimist Needs Communication Barriers: Visual Communication Needs: Glasses Does caregiver's language differ from patient's?: No Assistive Devices/DME: Eyeglasses Hearing - Right Ear: Hard of hearing Hearing - Left Ear: Hard of hearing Discharge Planning Type of Residence: Private residence Living Arrangements: Alone Support Systems: Friends/neighbors Patient expects to be discharged to: Private residence MERCURY RECOVERER NO ADDITIONAL COMMENTS/ FOLLOW UP * Pre-Procedure Instructions - Esther Nelson RN - 09/05/2025 11:38 AM CDT [facility] ([facility]) PRE-SURGICAL NURSING INSTRUCTIONS Telephone Assessment These instructions [...] remove nail coverings, artificial nails and nail malaysian prior to the day of surgery. This is to lower your risk of infection and to allow the day of surgery team to monitor your oxygen levels. You should leave your valuables and any jewelry at home. No metal or piercings are allowed in the operating room. You should bring your insurance card, a photo ID (example: Emergency Doctor's License) and a method of payment for [...] Chart. If you are having surgery at [facility], please arrive on the day of surgery [...] tools to help you quit or call 4-453-RHEVQEC ( ). Visit Smokefree.gov for more information. You will not have [...] Pathway to Excellent Care by the followinglink: [email or web address] How To Prepare Your Skin For Surgery [...] Remove nail coverings, artificial nails and nail malaysian. The Morning of Surgery: Take a shower [...] questions, please call the CPAP Staff at [phone], Wednesday-Wednesday 8am-4:30pm. All patients should read the below section: Information on [facility] & the [facility]: Please view [email or web address] (Patient & Visitor Information) for additional details regarding Advanced Directive forms, AWARE, directions, parking information, lodging, Internet access, dining and more. Information on [facility] or [facility] ([facility]): Please view [email or web address] (Patient and Visitor Information) for parking, directions, lodging and more. For MyChart information, to activate account or password recovery, please go to [email or web address] or call [phone] (toll-free: [phone]), Wed- Wednesday 8am-5pm. Information for Suicide Prevention: National Suicide Prevention Lifeline (9-121- 829-PWDK (3748)) or call or text 490. Chat resources: [employer]. Day of Surgery Arrival Times: For patients having surgery @ [facility] ([facility]), you will be notified of your day of surgery arrival time by either the [facility] Pre-Op OR team or your surgeon's office. If you have not been notified by 1pm THE BUSINESS DAY BEFORE your surgery, please call your surgeon's office Jeffrey Modi MD . You may also call [phone] and ask for your surgeon's office. For patients having surgery @ [facility], if you have not been notified of your surgery time by 4pm THE BUSINESS DAY BEFORE surgery, please contact your surgeon's office for day of surgery arrival time Jeffrey Modi MD . You may also call [phone] and ask for your surgeon's office. For patients having surgery at [facility], if you have notbeen notified of your surgery time by 4pm THE BUSINESS DAY BEFORE your surgery, please contact yourrgeon's office for day of surgery arrival time Jeffrey Modi MD . You may also call [phone] and ask for your surgeon's office. For patients having surgery @ [facility] ([facility]), you will be notified of your day of surgery arrival time by either the [facility] Pre-Op OR team or your surgeon's office. For patients having Ears/Nose Throat Surgery, Urology Surgery or Neuro Spine Surgery, the [facility] Pre-Op Team will contact you by 4pm THE BUSINESS DAY BEFORE surgery. For all other [facility] surgeries, if you have not been notified of your surgery time by 2pm THE BUSINESS DAY BEFORE your surgery, please call your surgeon's office Jeffrey Modi MD . They will be able to direct you to who will provide your surgery time. You may also call the surgery center at [phone] and ask for your surgeon's office. For patients [facility], if your surgeon's office or the surgery centerhas not notified you of your surgery time by 3pm THE BUSINESS DAY BEFORE your surgery, please call the surgery center at [phone]. The [facility] Preoperative Assessment & Planning ([facility]) does not provide arrival times for theday [...] of ear, unspecified laterality 09/12/2025 4:19 PM MANAGER PUBLISHING Scheduled Orders Name Type Priority Associated Diagnoses Orde r Schedule Surgical pathology Pathology and Cytology Routine Squamous cell carcinoma of skin of ear, unspecified laterality Release Upon Ordering for 1 Occurrences starting 09/12/2025 documented as of this encounter Goals Goal Patient Goal Type Associated Problems Recent Progress Patient-Stated? Author Autogenerat ed Goal Care Plan Autogenerated Problem No Lesley Gaitan Frandy documented as of this encounter Procedures Procedure Name Priority Date/Time Associated Diagnosis Comments LOCAL FLAP 09/12/2025 3:41 PM MANAGER PUBLISHING Squamous cell carcinoma of skin of ear, unspecified laterality Case Notes 09/11@0919- Per Chiquita Parsons to case - [facility] [place] EXCISION EXTERNAL EAR PARTIAL SIMPLE REPAIR 09/12/2025 3:41 PM MANAGER PUBLISHING Squamous cell carcinoma of skin of ear, unspecified laterality Case Notes 09/11@0919- Rod Parsons to case - DMF documented in this [...] MAR Action Action Date Dose Rate Site bacitracin-polymyxin B (POLYSPORIN) 500-10,000 unit/gram ointment tube As needed, Starting on Wed09/12/25 at 1716, Intra-Op Given 09/12/2025 5:16 PM MANAGER PUBLISHING 1 Application Surgical Site BUPivacaine-EPINEPHr ine (MARCAINE with EPI) 0.25 %-1:200,000 preservative free injection As needed, Starting on Wed09/12/25 at 1616, Intra-Op Given 09/12/2025 4:16 PM MANAGER PUBLISHING 6 mL Surgical Site Lactated Ringer's (LR) infusion 30 mL/hr, intravenous, Continuous, Starting on Wed09/12/25 at 1400, Pre-Op Rate/Dose Change 09/12/2025 4:16 PM MANAGER PUBLISHING 100 mL/hr Rate/Dose Change 09/12/2025 4:12 PM MANAGER PUBLISHING 500 mL/ hr Rate/Dose Change 09/12/2025 4:11 PM MANAGER PUBLISHING 300 mL/ hr sodium chloride 0.9% irrigation As needed, Starting on Wed09/12/25 at 1718, Intra-Op Given 09/12/2025 5:18 PM MANAGER PUBLISHING 1,000 mL Surgical Site documented in this encounter Historical Medications * [...] Recently Administered Medications Times are shown in MANAGER PUBLISHING. Continuous Medication Order 09/10/2025 09/11/2025 09/12/2025 Lactated [...] Count Last Ordered Date First Ordered Date ceFAZolin (ANCEF) 2,000 mg/2 0 mL in sterile water (premix) 2,000 mg 1 09/12/2025 fentaNYL (SUBLIMAZE) preserv ative free injection 50 mcg 1 09/12/2025 haloperidol lactate (HALDOL) injection 1 mg 1 09/12/2025 HYDROmorphone (DILAUDID) injection 0.2 mg 1 09/12/2025 naloxone (NARCAN) 0.4 mg/mL injection 0.04-0.4 mg 1 09/12/2025 prochlorperazine (COMPAZINE) injection 5 mg 1 09/12/2025 Discharge Count Last Ordered Date First Orde red Date DISCHARGE PATIENT 1 09/12/2025 documented in this encounter Additional Health Concerns Active Problems Noted Date Diagnosed Date Autogenerated Problem 09/04/2025 documented as of this encounter Care Teams Boiler Operator Helper Relationship Specialty Start Date End Date Edda Francisco MD [address] [place] [address] PCP - General Dermatology 09/04/25 Edda Francisco MD [address] [place] [id number] Dermatology 09/04/25 documented as of this encounter
--- OUTSIDE RECORDS SUMMARY | 2025-09-12 15:36 | XMS_ITS | Encounter Summary ---
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 LOCAL FLAP Jeffrey Modi MD [address] [place] [address] Phone: tel: fax: Referral ID Status Reason Start Date Expiration Date Visits Re quested Visits Authorized [id number] 09/04/2025 1 1 Encounter Details Date Type Department Care Team (Late st Contact Info) Description 09/12/2025 3:36 PM LINE OPERATOR Anesthesia Event [facility] Operating Room [address] [place] [phone] Dee Dee Campos MD [address] [place] [address] Hannah Vasquez NP [id number] [facility] [id number] [place] [address] Anesthesia Record Procedure Summary Procedure Name Responsible Anesthesiologist Anesthesia Start Time Anesthesia Stop Time AURICULECTOMY PARTIAL. (Right: Ear) Dee Dee Campos MD 09/12/25 1536 09/12/25 1805 Events Date Time Event Comment 09/12/2025 1313 In Preop 1536 An Start 1541 In Room 1541 An Start Data 1550 An Induction The patient was reevaluated immediately before moderate or deep sedation use and before anesthesia induction. 1553 An Intubation 1606 Anesthesia Ready 1607 Proc Start 1607 Incision Start 1742 Incision Close 1742 Proc Fin 1746 An Extubation 1750 Out of Room 1802 Handoff to RN I completed my handoff to the receiving nurse during which we: 1. Patient identified 2. Responsible provider identified 3. Pertinent medical history reviewed 4. Procedure type and surgical course discussed 5. Intraoperative anesthetic management and any significant issues discussed 6. Expectations and concerns for postop period discussed 7. Questions solicited from receiving nurse 8. Patient disposition at the time of handoff: No value filed. 1802 an stop data 1805 An Stop Meds Name Total lidocaine (cardiac) syringe 2 % 100 mg propofol 220 mg fentaNYL 100 mcg HYDROmorphone 2 mg/mL 0.4 mg succinylcholine 100 mg phenylephrine 100 mcg/mL 8.06 mg ondansetron PF (ZOFRAN) 2 mg/mL injectio n 4 mg glycopyrrolate 0.6 mg dexAMETHasone 4 mg/mL 4 mg ceFAZolin (ANCEF) 2,000 mg/20 mL in ster ile water (premix) 2,000 mg 0 mg ePHEDrine 25 mg/5 mL (5 mg/ml) syringe 1 0 mg remifentaniL (ULTIVA) 2,000 mcg in sodium chloride 0.9% 40 mL (50 mcg/mL) infusion 0.27 mg LR 800 mL Lactated Ringer's (LR) infusion 260.62 m L * Agents Name O2% N2O O2 N2O Air Sevoflurane Inspired Sevoflurane * Blood No blood administrations on file. Lines, Drains, and Airways Type Details Placement Removal Wound 09/12/25; 1641; Ear; Right 09/12/25 164 by Madison Hand RN Peripheral IV Placement Date: 04/01; Placement Time: 1336; Catheter Size: 20 G; Orientation: Distal, Left, Posterior; Location: Forearm; Technique: Anatomical landmarks; Insertion Attempts: 2; Removal Date: 09/12/25; Removal Time: 193909/12/251336 by Latasha Shah RN 09/12/251939 by Ashley Hutchins RN ETT Placement Date: 04/01; Placement Time: 1622 (created via procedure documentation); Mask Ventilation: 1; Technique: Direct laryngoscopy; Type: ETT - single; Single Lumen Tube Size: 8 mm; Cuffed: Yes; Laryngoscope: Maik; Blade Size: 4; Location: Oral; Grade View: Grade I; Insertion Attempts: 1; Placement Verification: Auscultation, Capnometry; Removal Date: 09/12/25; Removal Time: 174509/12/251622 by Heather Rivera MD 09/12/251745 by Heather Rivera MD Peripheral IV Placement Date: 04/01; Placement Time: 1623 (created via procedure documentation); Catheter Size: 18 G; Orientation: Right; Location: Antecubital; Site Prep: Chlorhexidine; Insertion Attempts: 1; Removal Date: 09/12/25; Removal Time: 193909/12/251623 by Heather Rivera MD 09/12/251939 by Ashley Hutchins RN documented in this encounter Social History Tobacco Use Types Packs/Day Years Used Date Smoking Tobacco: Former Cigarettes 1 39 1 959 - 1997 Passive Smoke Exposure: Past Smokeless Tobacco: Former Chew Quit: 1984 Alcohol Use Standard Drinks/Week Comments Yes 2 [...] on file Legal Sex Male 9:04 AM LINE OPERATOR Gender Identity Not on file Sexual Orientation Not on file documented as of this encounter Functional Status * Difference in Last Two Neto Scores Answer Date of Assessment Author -22 09/12/2025 1:26 PM LINE OPERATOR Laura Shah RN * Question Answer Date of Assessment Author MAP (mmHg) 92 09/12/2025 7:40 PM Ashley Caballero RN * Question Answer Date of Assessment Author Zurita Fall Risk Score (Score >= 45 places fall precaution order) 35 09/12/2025 1:26 PM Latasha Rao RN Prior Fall Event (Autopopulated from EMR) None found 09/12/2025 1:26 PM Madyson Rao RN * Fall Risk Interventions Question Answer Date of Assessment Author All Low Fall Interventions Applied Yes 09/12/2025 1:26 PM Latasha Rao RN All Moderate Fall Interventions Applied No 09/12/2025 1:26 PM Latasha Rao RN All Moderate Fall Risk Interventions EXCEPT: Gait belt at bedside;PT eval requested or obtained;OT eval requested or obtained;Remain with patient while toileting 09/12/2025 1:26 PM Latasha Rao RN * Integumentary Question Answer Date of Assessment Author Skin Integrity Surgical incision 09/12/2025 7:30 PM Ashley Portillo RN Integumentary (WDL) X 09/12/2025 7:30 PM Ashley Portillo RN Skin Location R ear 09/12/2025 1:26 PM Latasha Pritchett RN * Neto Scale Question Answer Date of Assessment Author Neto Scale Used Neto 09/12/2025 1:26 PM Latasha Rao RN * Fall Risk Interventions Question Answer Date [...] Author Level of Consciousness Alert;Awake 7:30 PM Ashley Perez RN Orientation Oriented to person;Oriented to place;Oriented to time 09/12/2025 7:30 PM Ashley Perez RN Neuro (WDL) X 09/12/2025 7:30 PM Ashley Perez RN documented in this encounter OR Notes * Anesthesia Postprocedure Evaluation - Luis Holcomb MD - 09/12/2025 6:39 PM CST Patient: Viral Grant Procedure Summary Date: 09/12/25 Room / Location: [facility] OR POD 5 ROOM 222 / [facility] OR POD 5 Anesthesia Start: 1536 Anesthesia Stop: 1804 Procedures: AURICULECTOMY PARTIAL. 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 Anesthesia Post Evaluation Patient location during evaluation: PACU Patient participation: complete - patient participated Level of consciousness: fully awake Pain score: 0 Pain management: adequate Airway patency: adequate Evidence of recall: no Cardiovascular status: acceptable Respiratory status: acceptable and room air Hydration status: acceptable Pt is: normothermic Nausea/Vomiting status: none No notable events documented. OPERATOR * Anesthesia Procedure Notes - Heather Rivera MD - 09/12/2025 4:23 PM LINE OPERATOR Associated Order(s): Peripheral IV Catheter Peripheral IV Catheter Patient location: OR Staff: Placed by: Resident: Heather Rivera MD Preprocedure prep: Prep solution: chlorhexadine PPE: gloves and provider hat/mask PIV line: Laterality: right Site: antecubital Catheter size: 18 g Technique: palpatation Procedure details: good blood return and occlusive dressing applied Number of attempts: 1 Assessment: Events: patient tolerated procedure well with no complications OPERATOR * Anesthesia Procedure Notes - Heather Rivera MD - 09/12/2025 4:23 PM LINE OPERATOR Associated Order(s): Airway Airway Patient location: OR Urgency: elective Indications for airway management: anesthesia Difficult airway: no Staff: Supervising provider: Ochoa Rodriguez MD Placed by: Resident: Heather Rivera MD Emergent airway documentation: Risks and benefits discussed: yes Consent obtained: yes Consent given by: patient Airway prep: Preoxygenated: yes Patient position: sniffing Mask difficulty assessment: 1 - vent by mask Spontaneous ventilation during airway: absent Sedation level during airway: GA Final airway details: Final airway type: endotracheal airway Tube type: ETT ETT size: 8.0 mm Cuffed: yes Technique used for successful ETT placement: direct laryngoscopy Devices/Methods used in placement: stylet and cricoid pressure Insertion site: oral Blade type: Maik Blade size: 4 Cormack-Lehane (direct): grade I - full view of glottis Cuff inflated with: air ETT to lips: 23 cm Placement verified by: auscultation and CO2 detection Airway secured with: silk tape Number of attempts: 1 OPERATOR * Anesthesia Preprocedure Evaluation - Ochoa Rodriguez MD - 09/12/2025 2:37 PM CST Images from the original note were not included. Anesthesia Evaluation Viral Grant is a 85 y.o. male AURICULECTOMY PARTIAL. 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 Pertinent negatives: diabetes mellitus Patient Active Problem List Diagnosis Date Noted Squamous cell carcinoma of skin of ear 09/04/2025 Past Medical History: Diagnosis Date Basal cell carcinoma (BCC) of cheek Basal cell carcinoma (BCC) of forehead Basal cell carcinoma (BCC) of left hand Basal cell carcinoma of right side of nose BPH (benign prostatic hyperplasia) Cancer (HCC) Skin Coronary artery disease Follows with Dr. Barajas @ [place] Dental disease High blood pressure HL (hearing loss) Hyperlipidemia Past Surgical History: Procedure Laterality Date CHOLECYSTECTOMY CORONARY STENT PLACEMENT 01/2012 RCA instent restenosis, NSTEMI- stent placed CORONARY STENT PLACEMENT 1997 RCA in [facility] CORONARY STENT PLACEMENT 04/2012 elective CX and RCA stent CYST REMOVAL cyst removed on neck x3 ESOPHAGOGASTRODUODENOSCOPY FOOT SURGERY Right HAND SURGERY Right x3 HAND SURGERY Left x2 THROAT SURGERY as a child, cyst removed on outside of throat No Known Allergies Med List Status: Nurse Complete Set By: Esther Nelson RN at 09/05/2025 11:29 AM Taking? Last Dose Start Date End Date Provider acetaminophen (TYLENOL) 500 mg tablet More than a month -- -- Biju Penn MD amLODIPine-benazepriL (LOTREL) 10-40 mg per capsule 09/11/2025 11/29/24 -- Biju Penn MD aspirin 81 mg enteric coated tablet 09/11/2025 11/24/19 -- Biju Penn MD escitalopram (LEXAPRO) 10 mg tablet 09/11/2025 07/20/25 -- Biju Penn MD finasteride (PROSCAR) 5 mg tablet Past Week 02/02/23 -- Biju Penn MD lovastatin (MEVACOR) 10 mg tablet 09/11/2025 11/15/24 -- Biju Penn MD metoprolol XL (TOPROL-XL) 25 mg extended release tablet 09/11/2025 04/30/25 -- Biju Penn MD naproxen sodium 220 mg capsule Past Month -- -- Biju Penn MD omega [id number] oil 1,000 (120-180) mg capsule 09/11/2025 05/16/25 -- Biju Penn MD omeprazole (PriLOSEC) 20 mg capsule 09/11/2025 -- -- Biju Penn MD Current Facility-Administered Medications: ceFAZolin (ANCEF) 2,000 mg/20 mL in sterile water (premix) 2,000 mg, 2,000 mg, intravenous, Once Lactated Ringer's (LR) infusion, 30 mL/hr, intravenous, Continuous, Last Rate: 30 mL/hr at , 30 mL/hr at 09/12/25 1338 Social History Tobacco Use Smoking Status Former Current packs/day: 0.00 Average packs/day: 1 pack/day for 39.0 years (39.0 ttl pk-yrs) Types: Cigarettes Start date: 1958 Quit date: 1997 Years since quittin.8 Passive exposure: Past Smokeless Tobacco Former Types: Chew Quit date: 1984 Alcohol Use: 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 INR: No results found for requested labs within last 30 days. APTT: No results found for requested labs within last 30 days. Hgb A1C: No results found for requested labs within last 30 days. CBC RBC: No results found for requested labs within last 30 days. RDW: No results found for requested labs within last 30 days. MCHC: No results found for requested labs within last 30 days. MCH: No results found for requested labs within last 30 days. MCV: No results found for requested labs within last 30 days. Hct: No results found for requested labs within last 30 days. Hgb: No results found for requested labs within last 30 days. WBC: No results found for requested labs within last 30 days. MPV: No results found for requested labs within last 30 days. Platelets: No results found for requested labs within last 30 days. RDW CV: No results found for requested labs within last 30 days. RDW Sd: No results found for requested labs within last 30 days. BMP Glucose: No results found for requested labs within last 30 days. Calcium: No results found for requested labs within last 30 days. Sodium: No results found for requested labs within last 30 days. Potassium: No results found for requested labs within last 30 days. CO2: No results found for requested labs within last 30 days. Chloride: No results found for requested labs within last 30 days. BUN: No results found for requested labs within last 30 days. Creatinine: No results found for requested labs within last 30 days. Oseas index score: 100 DOS Physical Exam Date of Last Liquid: 09/12/25, Time of Last Liquid: 1253 Date of Last Solid: 09/11/25, Time of Last Solid: 2300 Medical history, medications, and allergies reviewed. Attestation: This PAT evaluation 09/12/2025. Airway Exam: Mallampati: II Cervical ROM: FROM TM distance: >4 Cardiovascular Exam: Rate: regular Rhythm: regular Dental Exam: Appears intact Current state: (No upper teeth Missing lower central incisor) Anesthesia Plan ASA 3 My patient is approved for the Anesthesia Controlled Medication protocol when under care of a [employer] Planned anesthesia: General Team communication plan: oral ET tube Induction: Induction: intravenous. Informed Consent: Anesthesia plan and risks discussed with patient. Consent and Attending signature: I and/or my designee have discussed the anesthesia plan, benefits, possible alternatives, parental presence at time of induction (if indicated), and clinically relevant risks that may include dental injury, unintentional awareness, and/or other complications. The patient and/or parent/legal guardian understand, and agree to proceed. All questions answered. OPERATOR documented in this encounter Miscellaneous Notes * Addendum Note - Heather Rivera MD - 09/13/2025 6:52 PM CST Addendum created 09/13/251851 by Heather Rivera MD Intraprocedure Meds edited OPERATOR documented in this encounter Plan of Treatment Not on file documented as of this encounter Goals Goal Patient Goal Type Associated Problems Recent Progress Patient-Stated? Author Autogenerat ed Goal Care Plan Autogenerated Problem No Lesley Gaitan, [facility] documented as of this encounter Procedures Procedure Name Priority Date/Time Associated Diagnosis Comments PERIPHERAL LINE Routine 09/12/2025 4:23 PM LINE OPERATOR ANESTHESIA INTUBATION Routine 09/12/2025 4:23 PM LINE OPERATOR documented in this encounter Results * Peripheral IV Catheter (09/12/2025 4:23 PM LINE OPERATOR) Narrative Heather Rivera MD - 09/12/2025 4:23 PM LINE OPERATOR Heather Rivera MD 09/12/2025 4:24 PM Peripheral IV Catheter Patient location: OR Staff: Placed by: Resident: Heather Rivera MD Preprocedure prep: Prep solution: chlorhexadine PPE: gloves and provider hat/mask PIV line: Laterality: right Site: antecubital Catheter size: 18 g Technique: palpatation Procedure details: good blood return and occlusive dressing applied Number of attempts: 1 Assessment: Events: patient tolerated procedure well with no complications us Ochoa Rodriguez MD ANESTHESIA ORDERABLES Final Result * Airway (09/12/2025 4:23 PM LINE OPERATOR) Narrative Heather Rivera MD - 09/12/2025 4:23 PM LINE OPERATOR Heather Rivera MD 09/12/2025 4:23 PM Airway Patient location: OR Urgency: elective Indications for airway management: anesthesia Difficult airway: no Staff: Supervising provider: Ochoa Rodriguez MD Placed by: Resident: Heather Rivera MD Emergent airway documentation: Risks and benefits discussed: yes Consent obtained: yes Consent given by: patient Airway prep: Preoxygenated: yes Patient position: sniffing Mask difficulty assessment: 1 - vent by mask Spontaneous ventilation during airway: absent Sedation level during airway: GA Final airway details: Final airway type: endotracheal airway Tube type: ETT ETT size: 8.0 mm Cuffed: yes Technique used for successful ETT placement: direct laryngoscopy Devices/Methods used in placement: stylet and cricoid pressure Insertion site: oral Blade type: Maik Blade size: 4 Cormack-Lehane (direct): grade I - full view of glottis Cuff inflated with: air ETT to lips: 23 cm Placement verified by: auscultation and CO2 detection Airway secured with: silk tape Number of attempts: 1 us Ochoa Rodriguez MD ANESTHESIA ORDERABLES Final Result documented in this encounter Visit Diagnoses Not on filedocumented in this encounter Administered Medications Inactive Administered Medications - up to 3 most recent administrations Medication Order MAR Action Action Date Dose Rate Site dexAMETHasone (DECADRON) 4 mg/mL injection intravenous, Administer over 2 Minutes, As needed, Starting on Wed09/12/25 at 1622, Anesthesia Intra-op Given 09/12/2025 4:22 PM LINE OPERATOR 4 mg ePHEDrine 25 mg/5 mL (5 mg/mL) syringe intravenous, As needed, Starting on Wed09/12/25 at 1614, Anesthesia Intra-op Given 09/12/2025 4:14 PM LINE OPERATOR 10 mg fentaNYL (SUBLIMAZE) preservative free injection intravenous, As needed, Starting on Wed09/12/25 at 1550, Anesthesia Intra-op Given 09/12/2025 3:50 PM LINE OPERATOR 100 mcg glycopyrrolate (ROBINUL) injection intravenous, Administer over 1 Minutes, As needed, Starting on Wed09/12/25 at 1611, Anesthesia Intra-op Given 09/12/2025 4:13 PM LINE OPERATOR 0.2 mg Given 09/12/2025 4:11 PM LINE OPERATOR 0.4 mg HYDROmorphone (DILAUDID) injection intravenous, Administer over 2 Minutes, As needed, Starting on Wed09/12/25 at 1713, Anesthesia Intra-op Given 09/12/2025 5:13 PM LINE OPERATOR 0.4 mg Lactated Ringer's (LR) infusion 30 mL/hr, intravenous, Continuous, Starting on Wed09/12/25 at 1400, Pre-Op Rate/Dose Change 09/12/2025 4:16 PM LINE OPERATOR 100 mL/hr Rate/Dose Change 09/12/2025 4:12 PM LINE OPERATOR 500 mL/ hr Rate/Dose Change 09/12/2025 4:11 PM LINE OPERATOR 300 mL/ hr Lactated Ringer's (LR) infusion intravenous, Continuous PRN, Starting on Wed09/12/25 at 1547, Anesthesia Intra-op New Bag 09/12/2025 3:47 PM LINE OPERATOR lidocaine (cardiac) (XYLOCAINE) preservative free injection intravenous, As needed, Starting on Wed09/12/25 at 1550, Anesthesia Intra-op, Indications: Ventricular ArrhythmiasIndications:Ve ntricular Arrhythmias Given 09/12/2025 3:50 PM LINE OPERATOR 100 mg ondansetron (ZOFRAN) injection intravenous, Administer over 2 Minutes, As needed, Starting on Wed09/12/25 at 1715, Anesthesia Intra-op Given 09/12/2025 5:15 PM LINE OPERATOR 4 mg phenylephrine (ASAEL-SYNEPHRINE) 1 mg/10 mL (100 mcg/mL) in sodium chloride 0.9% (premix) intravenous, As needed, Starting on Wed09/12/25 at 1529, Anesthesia Intra-op Rate/Dose Change 09/12/2025 4:32 PM LINE OPERATOR 0.5 mcg/kg/min 28.6 mL/hr Rate/Dose Change 09/12/2025 4:25 PM LINE OPERATOR 0.4 mcg/kg/min 22. 9 mL/hr Rate/Dose Change 09/12/2025 4:22 PM LINE OPERATOR 0.6 mcg/kg/min 34. 3 mL/hr propofoL (DIPRIVAN) 10 mg/mL IV intravenous, As needed, Starting on Wed09/12/25 at 1550, Anesthesia Intra-op Given 09/12/2025 5:32 PM LINE OPERATOR 20 mg Given 09/12/2025 3:59 PM LINE OPERATOR 50 mg Given 09/12/2025 3:50 PM LINE OPERATOR 150 mg remifentaniL (ULTIVA) 2,000 mcg in sodium chloride 0.9% 40 mL (50 mcg/mL) infusion intravenous, Continuous PRN, Starting on Wed09/12/25 at 1636, Anesthesia Intra-op Rate/Dose Change 09/12/2025 4:50 PM LINE OPERATOR 0.05 mcg/kg/min 5.72 mL/hr Rate/Dose Verify 09/12/2025 4:36 PM LINE OPERATOR 0.05 mcg/kg/min 5. 718 mL/hr Rate/Dose Change 09/12/2025 4:35 PM LINE OPERATOR 0.05 mcg/kg/min 5. 72 mL/hr succinylcholine syringe intravenous, As needed, Starting on Wed09/12/25 at 1550, Anesthesia Intra-op Given 09/12/2025 3:50 PM LINE OPERATOR 100 mg documented in this encounter Additional Health Concerns Active Problems Noted Date Diagnosed Date Autogenerated Problem 09/04/2025 documented as of this encounter Care Teams Blast Furnace Blower Relationship Specialty Start Date End Date Edda Francisco MD [address] [place] [address] PCP - General Dermatology 09/04/25 Edda Francisco MD [address] [place] [address] Dermatology 09/04/25 documented as of this encounter
[2025-09-13 16:07] VITALS: BP 141/68; PULSE 83; RESP 20; TEMP 37; O2SAT 94
[2025-09-13 16:37] LABS: Add Urine Microscopic? YES; Appearance Urine Clear (Clear); Glucose Urine UA Negative (Negative); Leukocyte Esterase Ur Negative LEU/UL (Negative); Nitrate Urine Negative (Negative); Specific Grav Ur <= 1.005 (1.010-1.020)
--- NOTE | 2025-09-13 16:37 | ED_ITS ---
HPI - Male Genitourinary General Chief complaint: Urogenital-Male Stated complaint: urine retention/right ear bleeding s/p surgery Source: patient Mode of arrival: ambulatory Limitations: no limitations History of Present Illness HPI Narrative: This is a an 85-year-old male with history of hypertension and BPH recently had surgery on his right ear for cancer and was discharged from the hospital and since his discharge yesterday has been having trouble passing urine and presents today with some right ear post surgery that had some minor bleeding currently there is no bleeding but patient continued to have difficulty passing urine and district lying. Does have suprapubic pain and tenderness with no flank pain no fever chills. Onset (ago): day(s) Duration: constant Severity: moderate Related Data Home Medications ?Medication ?Instructions ?Recorded ?Confirmed ?Last Taken ?Type aspirin 81 mg tablet,delayed 81 mg PO HS 11/24/1907/1007/24/22 History release (Adult Low Dose Aspirin) omega 7-yso-ksz-fish oil 1,000 mg 1 cap PO DAILY 05/1608/01/25 Unknown History (120 mg-180 mg) capsule (Fish Oil) Allergies Allergy/AdvReac Type Severity Reaction Status Date / Time No Known Allergies Allergy Verified 08/01/25 11:05 Review of Systems Review of Systems: All systems reviewed & are unremarkable except as noted in HPI and below PMFSH Past Medical History Medical History Inguinal hernia Left inguinal hernia Erectile dysfunction CAD in [place] artery Dyslipidemia Edema of both legs Essential hypertension Hyperlipidemia (03/03/18) Surgical History Surgical History S/P laparoscopic hernia repair LIH repair w/ mesh DaVinci assisted 10/08/21 H/O neck surgery H/O foot surgery History of angioplasty History of cholecystectomy Social History Social History Smoking packs per day: 1 Smoking cigarettes per day: 20.0 Years smoked: 35 Smoking pack-years: 35.00 Tobacco type: cigarettes Smoking end date: 11/08/94 Alcohol intake: current Drinks per week: 1 Alcohol use details: rare Do You Feel Safe in your Home?: Yes Lack of Transportation: No Lack of Food: Never True Current Housing: I Have Housing Concerned About Future Housing: No Difficulty Paying Gas/Electric Bills: No Difficulty Paying for Meds: No Currently Unemployed: No Education: High School Diploma/GED Difficulty w/ Childcare or Family Care: No Living arrangements: alone Occupation/Education: retired Spiritual care concerns: No Exam Const: General: healthy appearing and no acute distress Nutritional Appearance: well nourished HENMT: Other: Right ear with a reconstructive surgery after he had a surgical debridement of a cancer currently there is no bleeding Resp: Effort & Inspection: normal respiratory effort Auscultation: clear to auscultation bilaterally Cardio: Rate: regular rate Rhythm: regular rhythm GI: GI Palp: Yes Soft to palpation and Yes Tenderness to palpation present (GI) Other: Suprapubic tenderness with palpation Urinary Catheter: Urinary Catheter: patent and draining and urine red Back/Spine/Pelvis: Back: no CVA tenderness Skin: General skin exam: normal color Rashes: no rashes Extrem: General: normal to inspection, no clubbing, cyanosis or edema and no pedal edema Course Course Emergency Course: Medical decision making narrative: The patient was evaluated by myself in the emergency department. History obtained from the patient is an independent historian physical exam performed and witnessed by the nurse. Patient has an area of surgery that was performed yesterday for removal of a cancer of his right ear and presents because of bleeding but currently there is no bleeding does apply Neosporin in daily as directed by his surgeon. Patient has been having difficulty passing urine and just currently a trickle since his discharge yesterday from the hospital. Francisco catheter was placed and 900cc of urine was removed Francisco remains in place and UA performed and reviewed. Repeat assessment: Patient doing well on repeat exam with no acute distress Symptoms have improved since arrival and placement of a Francisco catheter. Repeat vitals are stable Patient agrees with discussion and after shared medical decision-making and agrees with discharge. All questions answered to the patient's satisfaction. Advised follow-up in the next 24 to 48 hours with his PC PE. MDM - Male Genitourinary Lab Data Labs: Lab Results 09/13/25 Range/Units 16:32 Urine Color Pending Urine Appearance Pending Urine pH Pending Ur Specific [place] Pending Urine Protein Pending Urine Glucose (UA) Pending Urine Ketones Pending Ur Blood (Man) Pending Urine Nitrate Pending Urine Bilirubin Pending Urine Urobilinogen Pending Leukocyte Esterase Rfl Pending Critical Care Time Critical Care Time Critical Care Time: No Discharge Plan Discharge Clinical Impression: Skin lesion, BPH (benign prostatic hyperplasia), Francisco catheter in place Patient Disposition: Home Condition: Stable Instructions: Antibiotic Form, Enlarged Prostate (BPH) (ED), Francisco Catheter Placement and Care (ED) Patient Language: Palauan Prescriptions: No Action aspirin [Adult Low Dose Aspirin] 81 mg tablet,delayed release (DR/EC) 81 mg PO HS omega 1-qfk-zgy-fish oil [Fish Oil] 1,000 (120-180) mg capsule 1 cap PO DAILY finasteride 5 mg tablet 5 mg PO DAILY Qty: 90 2RF Patient Comments: wed-wed-wed metoprolol succinate 25 mg tablet extended release 24 hr See Rx Instructions .ROUTE .COMPLEX Qty: 90 2RF Dose Instruction: TAKE ONE TABLET BY MOUTH DAILY Rx Instructions: TAKE ONE TABLET BY MOUTH DAILY escitalopram oxalate 10 mg tablet See Rx Instructions .ROUTE .COMPLEX Qty: 90 0RF Dose Instruction: TAKE ONE TABLET BY MOUTH DAILY Rx Instructions: TAKE ONE TABLET BY MOUTH DAILY lovastatin 10 mg tablet See Rx Instructions .ROUTE .COMPLEX Qty: 90 2RF Dose Instruction: TAKE ONE TABLET BY MOUTH DAILY Rx Instructions: TAKE ONE TABLET BY MOUTH DAILY amlodipine-benazepril 10-40 mg capsule See Rx Instructions .ROUTE .COMPLEX Qty: 90 2RF Dose Instruction: TAKE ONE CAPSULE BY MOUTH DAILY Rx Instructions: TAKE ONE CAPSULE BY MOUTH DAILY Follow-up/Referrals: Rick Milan DO [Primary Care Provider, Family Practice]
[2025-09-13 17:03] VITALS: BP 140/68; PULSE 67; RESP 20; O2SAT 98
--- OUTSIDE RECORDS SUMMARY | 2025-09-13 21:04 | XMS_ITS | Clinical Summary ---
Author Organization [facility] Address [address] [place] [address] Care Team Providers Care Shuffle Board Operator Name Role Phone Edda Francisco MD Unavailable Edda Francisco MD Primary Care Provider [phone] Allergies No known active allergies Medications omega 2-tsc-dht-fish oil 1,000 (120-180) mg capsuleIndication s:hypertriglyceri demia Take 1 capsule (1,000 mg total) by mouth nightly 5 Active amLODIPine-benaze priL (LOTREL) 10-40 mg per capsuleIndication s:hypertension 1 capsule by other route nightly 5 Active aspirin 81 mg enteric coated tabletIndications :Myocardial Reinfarction Prevention,Pt has heart stents Take 1 tablet (81 mg total) by mouth nightly 0 Active finasteride (PROSCAR) 5 mg tabletIndications :benign prostatic hyperplasia with lower urinary tract sx Take 1 tablet (5 mg total) by mouth nightly 3 Active lovastatin (MEVACOR) 10 mg tabletIndications :hyperlipidemia 1 tablet (10 mg total) by other route nightly 5 Active metoprolol XL (TOPROL-XL) 25 mg extended release tabletIndications :coronary artery disease,hypertens ion Take 1 tablet (25 mg total) by mouth nightly 5 Active escitalopram (LEXAPRO) 10 mg tabletIndications :Anxiety with Depression 1 tablet (10 mg total) by other route nightly 5 Active naproxen sodium 220 mg capsuleIndication s:Pain Take 1 tablet by mouth 2 (two) times a day as needed (pain) Active acetaminophen (TYLENOL) 500 mg tabletIndications :Pain Take 2 tablets (1,000 mg total) by mouth every 6 (six) hours as needed for pain Active omeprazole (PriLOSEC) 20 mg capsuleIndication s:GERD Take 1 capsule (20 mg total) by mouth nightly as needed (GERD) Active oxyCODONE (ROXICODONE) 5 mg immediate release tabletIndications :Pain Take 1 tablet (5 mg total) by mouth every 4 (four) hours as needed for pain 5 tablet 5 Active cefadroxil (DURICEF) 500 mg capsule Take 1 capsule (500 mg total) by mouth 2 (two) times a day for 3 days 6 capsule 5 09/15/20 25 Active Active Problems Problem Noted Date Diagnosed Date Squamous cell carcinoma of skin of ear 5 Encounters Date Type Department Care Team Description 09/13/2025 [facility] Advanced Medicine [facility] ENT [address], [address] [place] [address] Nickie Zuñiga RN 09/12/2025 3:36 PM [facility] Anesthesia Event [facility] Operating Room [address] [place] [address] Dee Dee Campos MD Smith, Christine A., NP 09/12/2025 2:38 PM [facility] - 09/12/2025 6:49 PM [facility] Surgery [facility] Operating Room [address] [place] [address] Jeffrey Duarte MD AURICULECTOMY PARTIAL. 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 09/04/2025 2:20 PM CDT Office Visit 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 (Primary Dx) 09/04/2025 Orders Only [facility] Otolaryngology Head-Neck Division [address] [place] [phone] Jeffrey Duarte MD 08/29/2025 Telephone [facility] Otolaryngology [facility] [place] [address] Maribell Conteh, MS 08/24/2025 Telephone [facility] Otolaryngology [address] [place] [address] Maribell Conteh, MS 08/20/2025 Telephone [facility] Otolaryngology [address] [place] [address] Maribell Conteh, MS from Last 3 Months Surgical History Surgery Date Site/Laterality Comments CHOLECYSTECTOMY CYST REMOVAL cyst removed on neck x3 HAND SURGERY Right x3 HAND SURGERY Left x2 FOOT SURGERY Right CORONARY STENT PLACEMENT 01/07/2012 - 02/06/2012 RCA instent restenosis, NSTEMI- stent placed CORONARY STENT PLACEMENT 11/08/1997 - 11/07/1998 RCA in [facility] THROAT SURGERY as a child, cyst removed on outside of throat ESOPHAGOGASTRODUODENOSCOPY CORONARY STENT PLACEMENT 04/08/2012 - 05/07/2012 elective CX and RCA stent AURICULECTOMY PARTIAL 09/12/2025 Ear/Right Procedure: AURICULECTOMY PARTIAL.; Surgeon: Jeffrey Duarte MD; Location: [facility] OR POD 5; Service: Otolaryngology; Laterality: Right; Medical History Medical History Date Comments HL (hearing loss) Cancer (HCC) Skin Dental disease High blood pressure Basal cell carcinoma (BCC) of cheek Basal cell carcinoma (BCC) of forehead Basal cell carcinoma (BCC) of left hand Basal cell carcinoma of right side of nose Coronary artery disease Follows with Dr. 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 Gender Identity Not on file Sexual Orientation Not on file Last Filed Vital Signs Vital Sign Reading Time Taken Comments Blood Pressure 135/74 09/12/2025 7:40 PM [facility] Pulse 85 09/12/2025 7:40 PM [facility] Temperature 37 C (98.6 F) 09/12/2025 7:30 PM [facility] Respiratory Rate 22 09/12/2025 7:40 PM [facility] Oxygen Saturation 94% 09/12/2025 7:40 PM [facility] Inhaled Oxygen Concentration - - Weight 95.3 kg (210 lb) 09/12/2025 1:32 PM [facility] Height 177.8 cm (5' 10) 09/05/2025 11:29 AM CDT Body Mass Index 30.13 09/05/2025 11:29 AM CDT Plan of Treatment Health Maintenance Due Date Last Done Comments Depression Screening 1940 DTaP/Tdap/Td Vaccine (1 - Tdap) 1951 Hepatitis B Screening 1958 Zoster Vaccine (1 of 2) 1990 Well Visit 65+ 2005 Covid-19 Vaccine (5 - 2024-2 6 season) 2025 10/20/2022, 10/11/2021, 02/04/2021, Additional history exists Influenza Vaccine (#1) 2025 11/26/2021 Fall Risk Assessment 09/12/2026 09/12/2025 Pneumococcal vaccine 65+ Completed 05/03/2023, 11/08 Goals Goal Patient Goal Type Associated Problems Recent Progress Patient-Stated? Author Autogenerat ed Goal Care Plan Autogenerated Problem No Lesley Gaitan, [facility] Medical Devices Implanted Type Area Software Project Lead Device Identifier Shelf Expiration Date Model / Serial / Lot Stent-Last In 2011 Stent N/A: Coronary Artery Description:3-4? Stents in R CA and CX Procedures Procedure Name Priority Date/Time Associated Diagnosis Comments PERIPHERAL LINE Routine 09/12/2025 4:23 PM [facility] ANESTHESIA INTUBATION Routine 09/12/2025 4:23 PM [facility] LOCAL FLAP 09/12/2025 3:41 PM [facility] Squamous cell carcinoma of skin of ear, unspecified laterality Case Notes 09/11@0919- Per Chiquita Parsons to case - [facility] EXCISION EXTERNAL EAR PARTIAL SIMPLE REPAIR 09/12/2025 3:41 PM [facility] Squamous cell carcinoma of skin of ear, unspecified laterality Case Notes 09/11@0919- Per Chiquita Parsons to case - [facility] CT CHEST W CONTRAST Schedule ADELINA, Read ADELINA (Appt Today, Awaiting Results) 09/11/2025 10:10 AM [facility] 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 CT SOFT TISSUE NECK W CONTRAST Schedule ADELINA, Read ADELINA (Appt Today, Awaiting Results) 09/11/2025 10:10 AM [facility] 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 from Last 3 Months Results * Peripheral IV Catheter (09/12/2025 4:23 PM [facility]) Heather Donis MD - 09/12/2025 4:23 PM [facility] Heather Rivera MD 09/12/2025 4:24 PM Peripheral IV Catheter Patient location: OR Staff: Placed by: Resident: Heather Rivera MD Preprocedure prep: Prep solution: chlorhexadine PPE: gloves and provider hat/mask PIV line: Laterality: right Site: antecubital Catheter size: 18 g Technique: palpatation Procedure details: good blood return and occlusive dressing applied Number of attempts: 1 Assessment: Events: patient tolerated procedure well with no complications Ochoa Rodriguez MD ANESTHESIA ORDERABLES Final Result * Airway (09/12/2025 4:23 PM [facility]) Heather Donis MD - 09/12/2025 4:23 PM [facility] Heather Rivera MD 09/12/2025 4:23 PM Airway [...] Rodriguez MD ANESTHESIA ORDERABLES Final Result * CT Chest with Contrast (09/11/2025 10:10 AM [facility]) Anatomical Region Laterality Modality Body N/A Computed Tomogra phy 09/11/2025 10:2 4 AM [facility] Impressions 09/11/2025 10:24 AM [facility] 1. Scattered pulmonary nodules measuring up to [...] Cha Garza D.O. Narrative 09/11/2025 10:24 AM [facility] EXAMINATION: CT CHEST W CONTRAST ORDERING HEALTHCARE [...] other significant abnormality. Procedure Note Cha Garza, DO - 09/11/2025 EXAMINATION: CT CHEST W CONTRAST [...] Soft Tissue W Contrast (09/11/2025 10:10 AM [facility]) Anatomical Region Laterality Modality Head and Neck N/A Computed Tomogra phy 09/11/2025 10:3 0 AM [facility] Impressions 09/11/2025 10:30 AM [facility] 1. Right external ear thickening is nonspecific by CT and could reflect patient's provided history of malignancy. 2. There is no pathologic lymphadenopathy in the neck. 3. Other findings as above. Electronically signed by: Leander Page D.O. Narrative 09/11/2025 10:30 AM [facility] EXAM DESCRIPTION:CT SOFT TISSUE NECK W CONTRAST [...] spine as clinically indicated. Procedure Note Leander Page DO - 09/11/2025 EXAM DESCRIPTION:CT SOFT TISSUE [...] MD IMG CT PROCEDURES Final Res ult from Last 3 Months Additional Health Concerns Active Problems Noted Date Diagnosed Date Autogenerated Problem 09/04/2025 Insurance MEDICARE [facility] MEDICARE SUPPLEMENT MEDICARE Member Subscriber Plan / Payer ( fective 2005-Present) Name:Rudy Viral A Member ID:[id number] Relation to Subscriber:Self Name:Wallacejuliajohnnie Viral A Subscriber ID:[id number] Payer ID:[id number] Group ID:Not on file Type:MEDICARE TRADITIONAL Address: [place] [phone] [employer] MEDICARE SUPPLEMENT Care Teams Shuffle Board Operator Relationship Specialty Start Date End Date Edda Francisco MD [address] [place] [address] PCP - General Dermatology 09/04/25 Edda Francisco MD [address] [place] [address] Dermatology 09/04/25
--- OUTSIDE RECORDS SUMMARY | 2025-09-13 21:04 | XMS_ITS | Patient Health Record ---
Author Organization [facility] Address [address] [place], [place] [id number] Care Team Providers Care Profiler Name Role Phone Rick Milan Unavailable Unavailable Reason For Referral No Information Social History Social History Additional Details Category Social Info Options Details Migrated Social History Migrated Social History Alcohol intake : , History of tobacco use : , Smoking Status : Former tobacco user Plan Of Treatment No Information
--- OUTSIDE RECORDS SUMMARY | 2025-09-13 21:04 | XMS_ITS | Encounter Summary ---
Author Organization [facility] Address [address] [place] [address] Phone Care Team Providers Care Machine Assembler Supervisor Name Role Phone Edda Francisco MD Unavailable Edda Francisco MD Primary Care Provider [phone] Encounter Details Date Type Department Care Team (Late st Contact Info) Description 09/13/2025 Telephone [facility] - [facility] Medicine ENT [address] Floor, [address] [place] [address] Nickie Zuñiga RN Social History Tobacco Use Types Packs/Day Years [...] on file 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 I advised that Terrie showed go to er so that they can do a catheter and further evaluation. Kalyan also stated that Terrie is having bleeding from surgical since since cleaning, and they cannot control the bleeding. Since terrie is going to ear they should be able to help with this, but will get recommendations from Dr. Rian machado for care. I informed Kalyan I will call her back with recommendations. Y DRIER OPERATOR HELPER documented in this encounter Plan of Treatment Not on file documented as of this encounter Goals Goal Patient Goal Type Associated Problems Recent Progress Patient-Stated? Author Autogenerat ed Goal Care Plan Autogenerated Problem No Lesley Gaitan, RMA documented as of this encounter Visit Diagnoses Not on filedocumented in this encounter Additional Health Concerns Active Problems Noted Date Diagnosed Date Autogenerated Problem 09/04/2025 documented as of this encounter Care Teams Machine Assembler Supervisor Relationship Specialty Start Date End Date Edda Francisco MD [address] [place], [place] [id number] PCP - General Dermatology 09/04/25 Edda Francisco MD [address] [place] [address] Dermatology 09/04/25 documented as of this encounter
--- OUTSIDE RECORDS SUMMARY | 2025-09-13 21:04 | XMS_ITS | Clinical Summary ---
Author Organization [facility] Address [address] [place] [address] Care Team Providers Care Hogshead Filler Name Role Phone Rick Milan DO Primary Care Provider [phone] Source Comments [facility],non-owned Affiliates and Associated Physician Practices is amultiple site organization consisting of ambulatory clinics and hospital sitesin [place], [place], [place] and [place]. This disclosure is being madepursuant to the Care Everywhere program and may not contain all information available regarding this patient. 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
--- OUTSIDE RECORDS SUMMARY | 2025-09-13 21:04 | XMS_ITS | Clinical Summary ---
Author Organization [facility] Address [address] [place] [address] Care Team Providers Care Skiver Hand Name Role Phone Rick Milan DO Primary Care Provider [phone] Social History Tobacco Use Types Packs/Day Years [...] 1-dose 75+ series) 2015 COVID-19 Vaccine (3 - 2024-2 6 season) 2025 02/04/2021, 01/14/2021 Influenza Adult (#1) 2025 Hepatitis A Vaccines Aged Out No long er eligible based on patient's age to complete this topic Meningococcal B Vaccine Aged Out No l onger eligible based on patient's age to complete this topic Meningococcal Vaccine Aged Out No dipika ale eligible based on patient's age to complete this topic RSV Immunizations Under 20 Months Aged Out No longer eligible b ased on patient's age to complete this topic Insurance MEDICARE [facility] Care Teams Skiver Hand Relationship Specialty Start Date End Date Rick Milan DO [address] [place] [address] PCP - General FAMILY PRACTICE 09/21/23
== END 2025-09-13 17:03 | disposition home or self-care (01) ==
LOC: CHSED 16:50
PROVIDERS: Emergency Provider Emergency Medicine; PCP Family Medicine
DX: L98.9 Disorder of the skin and subcutaneous tissue, unspecified (principal); N40.0 Benign prostatic hyperplasia without lower urinary tract symptoms; I10 Essential (primary) hypertension; I25.10 Atherosclerotic heart disease of native coronary artery without angina pectoris; E78.5 Hyperlipidemia, unspecified; F17.210 Nicotine dependence, cigarettes, uncomplicated; Z98.890 Other specified postprocedural states
CPT/HCPCS: 51702; 81001; 99283